=== PATIENT | male | born 1945 | race African-American/Black ===

== ENCOUNTER 2016-10-30 15:54 | Emergency (ER) | payer MEDICARE, BC ==
[~2016-10-30] VITALS: Ht 177.8 cm; Wt 73.0 kg
[~2016-10-30 15:54] MED LIST: ATOR10TA15 PO; CLON0.5T PO; COLA100C3 PO; HYDR25TA5 PO; IPRAAER INH; LABE200T2 PO; LEVE500S PO; LEXA20TA PO; NIFE90TA2 PO; POTA10LI10 PO; PRED10 PO; PULM180I INH; SENN8.6T81 PO; ZANTTAB PO
[2016-10-30 16:01] VITALS: BP 141/87; PULSE 64; RESP 16; TEMP 98.3; O2SAT 89
[2016-10-30 16:29] VITALS: BP 162/84; PULSE 59; RESP 16; O2SAT 100
[2016-10-30] MEDS ORDERED: SODIUM CHLORIDE 0.9% FLUSH 5 ML FLUSH IVF PRN (16:30)
[2016-10-30 16:37] LABS: AUTOMATED NEUTROPHIL # 5.6 TH/MM3 (1.8-7.7); BASOPHIL # 0.1 TH/MM3 (0-0.2); BASOPHIL % 2.1 % (0.0-2.0); EOSINOPHIL % 0.6 % (0.0-4.0); HEMATOCRIT 38.2 % (39.0-51.0); LYMPH % 13.8 % (9.0-44.0); MEAN CELL VOLUME 88.7 FL (80.0-100.0); MEAN CORPUSCULAR HEMOGLOBIN 28.8 PG (27.0-34.0); MEAN CORPUSCULAR HGB CONC 32.5 % (32.0-36.0); MONO % 4.6 % (0.0-8.0); NEUT % 78.9 % (16.0-70.0); PLATELET COUNT 223 TH/MM3 (150-450); RED BLOOD COUNT 4.31 MIL/MM3 (4.50-5.90); RED CELL DISTRIBUTION WIDTH 14.3 % (11.6-17.2)
[2016-10-30 16:38] LABS: HEMO FLAGS DIFF FINAL
--- NOTE | 2016-10-30 16:43 | PD ---
HPI Chief Complaint: Headache Time Seen by Provider: 16:13 Travel History International Travel<30 days: No Contact w/Intl Traveler<30days: No Traveled to known affect area: No History of Present Illness HPI Patient is a 71-year-old male with history of intracranial hemorrhage, AAA, CVA, seizure, hypertension, hyperlipidemia, COPD, chronic hypoxic respiratory failure who presents to emergency room with his family for evaluation of headache. The patient's reports that patient woke up this afternoon and complaints of a headache. Reports that the headache is located to the left side of his face around his eye. Patient is unable to describe how his headache feels. Family concerned as patient has had history of a intracranial hemorrhage in the past. Reports that with his history of CVA, reports that patient has problems describing how he usually feels and patient cannot verbalize his symptoms. 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 Patient was seen by Dr. Rodriguez with neurosurgeon at that time. PCP: Dr. Silva Leon Messenger Office: Dr. Raymundo Mckinney [facility] Past Medical History Asthma: No Anxiety: No Depression: Yes Heart Rhythm Problems: No Cancer: Yes (STOMACH-RADIATION TXMENT) Cardiovascular Problems: Yes High Cholesterol: Yes Chemotherapy: Yes Chest Pain: No Congestive Heart Failure: No COPD: Yes Cerebrovascular Accident: Yes Diabetes: No Diminished Hearing: No Endocrine: No Gastrointestinal Disorders: Yes (HX OF STOMACH CANCER ) GERD: No Genitourinary: No Headaches: No Hiatal Hernia: No Hypertension: Yes Immune Disorder: No Implanted Vascular Access Dvce: No Kidney Stones: No Musculoskeletal: No Neurologic: Yes Psychiatric: Yes Reproductive: No Respiratory: Yes Migraines: No Radiation Therapy: Yes Renal Failure: No Seizures: Yes Sleep Apnea: Yes Thyroid Disease: No Ulcer: No Tetanus Vaccination: Unknown Past Surgical History Abdominal Surgery: Yes (ABDOMINAL ANEURYSM REPAIR) Cardiac Surgery: Yes (PT HAS AORTIC ANEURYSM 4-5CM, surgery done unable to recall type) Ear Surgery: No Endocrine Surgery: No Eye Surgery: No Genitourinary Surgery: No Gynecologic Surgery: No Joint Replacement: Yes (RT SHOULDER(ROTATOR CUFF) SURGERY) Neurologic Surgery: Yes (Craniotomy ) Oral Surgery: Yes (Teeth removal) Thoracic Surgery: No Other Surgery: Yes (DEVIATED SEPTUM REPAIR) Social History Alcohol Use: No Tobacco Use: No (40 YR HX 1PPD QUIT 08/07) Substance Use: No Allergies-Medications (Allergen,Severity, Reaction): Coded Allergies: Aspirin (Verified Allergy, Severe, VOMITING, 10/30/16) Reported Meds & Prescriptions Reported Meds & Active Scripts Active Reported Sennosides 8.6 Mg Tab 8.6 Mg PO BID Zantac 150 Maximum Strength (Ranitidine HCl) 150 Mg Tab 150 Mg PO BID Prednisone 10 Mg Tab 15 Mg PO DAILY Potassium Chloride Liq (Potassium Chloride) 40 Meq/15 Ml Soln 40 Meq PO BID Keppra Liq (Levetiracetam) 500 Mg/5 Ml Soln 500 Mg PO BID Labetalol (Labetalol HCl) 200 Mg Tab 200 Mg PO BID Hydrochlorothiazide 25 Mg Tab 25 Mg PO DAILY Lexapro (Escitalopram Oxalate) 20 Mg Tab 20 Mg PO HS Colace (Docusate Sodium) 100 Mg Cap 100 Mg PO BID Clonazepam 0.5 Mg Tab 0.25 Mg PO HS Pulmicort Flexhaler (Budesonide Powder Inh) 180 Mcg/Act Inhp 180 Mcg INH Q12HR Atorvastatin (Atorvastatin Calcium) 10 Mg Tab 10 Mg PO HS Combivent Respimat Inh (Ipratropium-Albuterol Inh) 20-100 Usp/Act Aero 1 Puff INH QID Review of Systems General / Constitutional: No: Fever Eyes: No: Visual changes HENT: Positive: Headaches Cardiovascular: No: Chest Pain or Discomfort Respiratory: No: Shortness of Breath Gastrointestinal: No: Abdominal Pain Genitourinary: No: Dysuria Musculoskeletal: No: Pain Skin: No Rash Neurologic: No: Weakness Psychiatric: No: Depression Endocrine: No: Polydipsia Hematologic/Lymphatic: No: Easy Bruising Physical Exam Narrative GENERAL: NAD, nontoxic SKIN: Warm and dry. HEAD: Atraumatic. Normocephalic. EYES: Pupils equal and round. No scleral icterus. No injection or drainage. ENT: No nasal bleeding or discharge. Mucous membranes pink and moist. NECK: Trachea midline. No JVD. CARDIOVASCULAR: Regular rate and rhythm. No murmur appreciated. RESPIRATORY: No accessory muscle use. Clear to auscultation. Breath sounds equal bilaterally. GASTROINTESTINAL: Abdomen soft, non-tender, nondistended. Hepatic and splenic margins not palpable. MUSCULOSKELETAL: No obvious deformities. No clubbing. No cyanosis. No edema. NEUROLOGICAL: Awake and alert. No obvious cranial nerve deficits. Motor grossly within normal limits. PSYCHIATRIC: Appropriate mood and affect; insight and judgment normal. Data Data Last Documented VS Vital Signs Date Time Temp Pulse Resp B/P Pulse Ox O2 Delivery O2 Flow Rate FiO2 10/30/16 17:49 62 16 118/69 100 Nasal Cannula 3 10/30/16 16:01 98.3 Orders Complete Blood Count With Diff (10/30/16 16:23) Comprehensive Metabolic Panel (10/30/16 16:23) Prothrombin Time / Inr (Pt) (10/30/16 16:23) Act Partial Throm Time (Ptt) (10/30/16 16:23) Ct Brain W/O Iv Contrast(Rout) (10/30/16 16:23) Ecg Monitoring (10/30/16 16:23) Iv Access Insert/Monitor (10/30/16 16:23) Oximetry (10/30/16 16:23) Oxygen Administration (10/30/16 16:23) Blood Glucose (10/30/16 16:23) Sodium Chloride 0.9% Flush (Ns Flush) (10/30/16 16:30) Dexamethasone Inj (Decadron Inj) (10/30/16 17:15) Acetaminophen (Tylenol) (10/30/16 17:15) Diphenhydramine Inj (Benadryl Inj) (10/30/16 17:30) Metoclopramide Inj (Reglan Inj) (10/30/16 17:30) Labs Laboratory Tests Test 10/30/16 16:30 White Blood Count 7.0 TH/MM3 Red Blood Count 4.31 MIL/MM3 Hemoglobin 12.4 GM/DL Hematocrit 38.2 % Mean Corpuscular Volume 88.7 FL Mean Corpuscular Hemoglobin 28.8 PG Mean Corpuscular Hemoglobin 32.5 % Concent Red Cell Distribution Width 14.3 % Platelet Count 223 TH/MM3 Mean Platelet Volume 8.9 FL Neutrophils (%) (Auto) 78.9 % Lymphocytes (%) (Auto) 13.8 % Monocytes (%) (Auto) 4.6 % Eosinophils (%) (Auto) 0.6 % Basophils (%) (Auto) 2.1 % Neutrophils # (Auto) 5.6 TH/MM3 Lymphocytes # (Auto) 1.0 TH/MM3 Monocytes # (Auto) 0.3 TH/MM3 Eosinophils # (Auto) 0.0 TH/MM3 Basophils # (Auto) 0.1 TH/MM3 CBC Comment DIFF FINAL Differential Comment Prothrombin Time 10.0 SEC Prothromb Time International 0.9 RATIO Ratio Activated Partial 22.6 SEC Thromboplast Time Sodium Level 141 MEQ/L Potassium Level 4.3 MEQ/L Chloride Level 101 MEQ/L Carbon Dioxide Level 34.4 MEQ/L Anion Gap 6 MEQ/L Blood Urea Nitrogen 23 MG/DL Creatinine 1.10 MG/DL Estimat Glomerular Filtration 80 ML/MIN Rate Random Glucose 154 MG/DL Calcium Level 9.3 MG/DL Total Bilirubin 0.2 MG/DL Aspartate Amino Transf 21 U/L (AST/SGOT) Alanine Aminotransferase 34 U/L (ALT/SGPT) Alkaline Phosphatase 106 U/L Total Protein 7.2 GM/DL Albumin 3.2 GM/DL MDM Medical Decision Making Medical Screen Exam Complete: Yes Emergency Medical Condition: Yes Interpretation(s) Vital Signs Date Time Temp Pulse Resp B/P Pulse Ox O2 Delivery O2 Flow Rate FiO2 10/30/16 16:29 59 16 162/84 100 Nasal Cannula 2 10/30/16 16:17 16 98 Nasal Cannula 3 10/30/16 16:01 98.3 64 16 141/87 89 Differential Diagnosis Intracranial hemorrhage, CVA, cephalgia, complicated migraine Narrative Course Patient is a 71-year-old male who presents to emergency room with complaints of headache. As per family, headache began after patient woke up from a nap this afternoon. Patient reports headache is located to the left side of his face behind his eye, patient unable to describe this pain. Family was at bedside reports that they are concerned that his headache started earlier today and patient has problems with describing his feelings. Reports concern for possible ICH as pt has had ICH in august of 2015. Patient is unable to tell me if this headache feels similar to his previous symptoms when he had intracranial hemorrhage in the past. Patient was placed on quality assurance monitor chassis, patient currently on home oxygen at 3 L nasal cannula at all times, 3 L nasal cannula placed on patient. CT of the head ordered for evaluation of possible intracranial hemorrhage. CBC, BMP, coags ordered for further evaluation of symptoms. CBC WBC 7.0 Hemoglobin 12.4 Hematocrit 38.2 Platelets 223 BMP Sodium 141 Chloride 101 Potassium 4.3 Carbon dioxide 34.4 BUN 23 Creatinine 1.10 Glucose 154 PT 10 PTT 22.6 INR 0.[address] 10/30/16 1623 Signed Impressions: Service Date/Time: Sunday, October 30, 2016 16:53 - CONCLUSION: Diffuse atrophy with ex vacuo dilatation of the ventricular system. Encephalomalacia involving the left parieto-occipital regions . No evidence of acute hemorrhage or reaccumulation of the hemorrhage seen previously. Raymundo Millan MD Patient with complete resolutions of symptoms at this time. Patient reports no headache, patient requests to be discharged to home. I did review all labs and all studies with patient and his family in detail. I reviewed signs and symptoms of when to return to the emergency room. Patient will return to emergency room if symptoms return or if he develops any symptoms discussed with him today. Diagnosis Primary Impression: Cephalgia Qualified Code: R51 - Acute nonintractable headache, unspecified headache type Patient Instructions: General Instructions Additional Instructions: Please follow-up with your primary care doctor in 1-2 days Please return to ER as needed Please return to emergency room if symptoms progress or worsen or return Disposition: 01 DISCHARGE HOME Condition: Stable Hetal Stock DO Oct 30, 2016 16:42 Hetal Stock DO Oct 30, 2016 16:42
[2016-10-30 16:44] VITALS: RESP 16; O2SAT 100
[2016-10-30 16:46] LABS: CHLORIDE 101 MEQ/L (98-107); POTASSIUM 4.3 MEQ/L (3.5-5.1); SODIUM (NA) 141 MEQ/L (136-145)
[2016-10-30 16:50] LABS: ANION GAP 6 MEQ/L (5-15); APTT (PATIENT) 22.6 SEC (24.3-30.1); BICARBONATE 34.4 MEQ/L (21.0-32.0); BLOOD UREA NITROGEN 23 MG/DL (7-18); INTERNATIONAL NORMALIZED RATIO 0.9 RATIO
[2016-10-30 16:53] LABS: ALT (GPT) 34 U/L (12-78); AST (GOT) 21 U/L (15-37); GLOMERULAR FILTRATION RATE 80 ML/MIN (>89)
[2016-10-30 16:55] LABS: TOTAL BILIRUBIN ADULT 0.2 MG/DL (0.2-1.0)
[2016-10-30 16:56] LABS: ALKALINE PHOSPHATASE 106 U/L (45-117)
--- NOTE | 2016-10-30 17:10 | RADHPO ---
EXAM DATE/TIME: 10/30/2016 16:53 [facility] COMPARISON: CT BRAIN W/O CONTRAST, December 26, 2015, 21:50. INDICATIONS : Left side cephalgia. RADIATION DOSE: 64.25 CTDIvol (mGy) MEDICAL HISTORY : Non-responsive. SURGICAL HISTORY : Non-responsive. ENCOUNTER: Initial ACUITY: 1 day PAIN SCALE: Non-responsive LOCATION: cranial TECHNIQUE: Multiple contiguous axial images were obtained of the head. Using automated exposure control and adj ustment of the mA and/or kV according to patient size, radiation dose was kept as low as reasonably a chievable to obtain optimal diagnostic quality images. FINDINGS: CEREBRUM: The ventricles are normal for age except for a saccular dilatation in the left. Stable areas of encep halomalacia in the left occipitoparietal region. No evidence of midline shift, mass lesion, hemorrhag e or acute infarction. No extra-axial fluid collections are seen. POSTERIOR FOSSA: The cerebellum and brainstem are intact. The 4th ventricle is midline. The cerebellopontine angle i s unremarkable. EXTRACRANIAL: The visualized portion of the orbits is intact. SKULL: The calvaria is intact. No evidence of skull fracture. Previous left high parietal craniotomy CONCLUSION: Diffuse atrophy with ex vacuo dilatation of the ventricular system. Encephalomalacia involving the le ft parieto-occipital regions . No evidence of acute hemorrhage or reaccumulation of the hemorrhage s een previously. Raymundo Millan MD on October 30, 2016 at 17:07 Board Certified Radiologist. This report was verified electronically.
[2016-10-30] MEDS ORDERED: DEXAMETHASONE SOD PHOS 20 MG/5 ML VIAL IV PUSH ONE (17:15)
[2016-10-30] MEDS ORDERED: ACETAMINOPHEN 325 MG TAB PO ONE (17:15)
[2016-10-30] MEDS ORDERED: METOCLOPRAMIDE HCL 10 MG/2 ML VIAL IVP ONE (17:30)
[2016-10-30] MEDS ORDERED: diphenhydrAMINE HCL 50 MG/ML VIAL IVP ONE (17:30)
[2016-10-30 17:49] VITALS: BP 118/69; PULSE 62; RESP 16; O2SAT 100
[2016-10-30 18:27] VITALS: BP 115/64
[2017-03-26] MEDS ORDERED: COLA100C PO (14:45)
[2017-03-26] MEDS ORDERED: ALBU0.08 NEB (14:45)
[2017-03-26] MEDS ORDERED: HYDR-3533 PO (14:45)
== END 2016-10-30 18:55 | disposition home or self-care (01) ==
LOC: PHED 15:54
DX: R51 Headache (principal); E78.00 Pure hypercholesterolemia, unspecified; I10 Essential (primary) hypertension; R56.9 Unspecified convulsions; J44.9 Chronic obstructive pulmonary disease, unspecified; Z99.81 Dependence on supplemental oxygen; Z87.891 Personal history of nicotine dependence; Z86.73 Personal history of transient ischemic attack (TIA), and cerebral infarction without residual deficits; G47.30 Sleep apnea, unspecified
CPT/HCPCS: 70450; 80053; 85025; 85610; 85730; 96374; 96375; 99284; J1100; J1200; J2765

== ENCOUNTER 2017-01-23 20:07 | Emergency (ER) | payer MEDICARE, BC ==
[~2017-01-23] VITALS: Ht 177.8 cm; Wt 73.7 kg
[~2017-01-23 20:07] MED LIST changes: -NIFE90TA2 PO
[2017-01-23 20:29] VITALS: BP 175/96; PULSE 65; RESP 14; O2SAT 92
[2017-01-23 20:36] VITALS: BP 175/96; PULSE 60; RESP 18; TEMP 98.5; O2SAT 98
[2017-01-23] MEDS ORDERED: RESP: ALBUTEROL 2.5 MG/IPRATROPIUM 0.5 MG NEB (SCH) NEB ONE (20:45)
[2017-01-23] MEDS ORDERED: SODIUM CHLORIDE 0.9% FLUSH 10 ML FLUSH IVF PRN (20:45)
[2017-01-23 21:08] LABS: BLOOD GAS BASE EXCESS 8.3 mmol/L (-2-2); BLOOD GAS CARBOXYHEMOGLOBIN 1.3 % (0-4); BLOOD GAS HCO3 34 mmol/L (22-26); BLOOD GAS O2 HGB SATURATION 97 % (90-100); BLOOD GAS OXYGEN CONTENT 17.2 Vol % (12.0-20.0); BLOOD GAS PCO2 60 mmHG (38-42); BLOOD GAS PO2 165 mmHG (61-120); BLOOD GAS TOTAL HGB 12.4 G/DL (12.0-16.0); CRITICAL VALUE YES; OXYGEN DEVICE NASAL CANNULA; TEMP CORR TO 98.6
[2017-01-23 21:09] LABS: DRAW SITE LT RADIAL; LITER FLOW 3 L/M; NUMBER OF ARTERIAL PUNCTURES 1; STAT YES; ULNAR PULSE Y
--- NOTE | 2017-01-23 21:20 | RADHPO ---
EXAM DATE/TIME: 01/23/2017 20:51 [facility] COMPARISON: CHEST SINGLE AP, September 04, 2016, 15:57. INDICATIONS : Short of breath. MEDICAL HISTORY : Stroke. Chronic obstructive pulmonary disease. SURGICAL HISTORY : None. ENCOUNTER: Initial ACUITY: 1 day PAIN SCORE: 0/10 LOCATION: Bilateral chest FINDINGS: A single view of the chest demonstrates the lungs to be symmetrically aerated without evidence of mas s, infiltrate or effusion. The cardiomediastinal contours are unremarkable. Osseous structures are intact. CONCLUSION: No evidence of acute cardiopulmonary disease. David Garcia MD on January 23, 2017 at 21:18 Board Certified Radiologist. This report was verified electronically.
[2017-01-23 21:29] VITALS: RESP 18; O2SAT 99
[2017-01-23 21:32] LABS: AUTOMATED NEUTROPHIL # 5.6 TH/MM3 (1.8-7.7); BASOPHIL # 0.2 TH/MM3 (0-0.2); BASOPHIL % 3.3 % (0.0-2.0); EOSINOPHIL % 0.1 % (0.0-4.0); HEMATOCRIT 38.5 % (39.0-51.0); HEMO FLAGS DIFF FINAL; LYMPHOCYTE # 1.2 TH/MM3 (1.0-4.8); MEAN CELL VOLUME 89.6 FL (80.0-100.0); MEAN CORPUSCULAR HEMOGLOBIN 28.9 PG (27.0-34.0); MEAN CORPUSCULAR HGB CONC 32.2 % (32.0-36.0); NEUT % 74.6 % (16.0-70.0); PLATELET COUNT 168 TH/MM3 (150-450); RED CELL DISTRIBUTION WIDTH 14.7 % (11.6-17.2); WHITE BLOOD COUNT 7.4 TH/MM3 (4.0-11.0)
[2017-01-23 21:40] LABS: CHLORIDE 101 MEQ/L (98-107); POTASSIUM 4.6 MEQ/L (3.5-5.1); SODIUM (NA) 140 MEQ/L (136-145)
[2017-01-23 21:44] LABS: ANION GAP 4 MEQ/L (5-15); BICARBONATE 34.7 MEQ/L (21.0-32.0); BLOOD UREA NITROGEN 24 MG/DL (7-18)
[2017-01-23 21:46] LABS: APTT (PATIENT) 23.3 SEC (24.3-30.1); INTERNATIONAL NORMALIZED RATIO 0.9 RATIO; PROTHROMBIN TIME - PATIENT 10.1 SEC (9.8-11.6)
[2017-01-23 21:47] LABS: ALT (GPT) 27 U/L (12-78); AST (GOT) 19 U/L (15-37); GLOMERULAR FILTRATION RATE 72 ML/MIN (>89)
[2017-01-23 21:48] LABS: TOTAL BILIRUBIN ADULT 0.2 MG/DL (0.2-1.0)
[2017-01-23 21:50] LABS: ALKALINE PHOSPHATASE 88 U/L (45-117)
[2017-01-23 21:54] LABS: CREATINE KINASE 66 U/L (39-308)
[2017-01-23 22:30] VITALS: BP 186/105; PULSE 63; RESP 18; O2SAT 99
--- NOTE | 2017-01-23 22:41 | RADHPO ---
EXAM DATE/TIME: 01/23/2017 22:19 [facility] COMPARISON: No previous studies available for comparison. INDICATIONS : Altered mental status. RADIATION DOSE: 63.94 CTDIvol (mGy) MEDICAL HISTORY : Stroke. Seizures. Chronic obstructive pulmonary disease.Hypertension. Stomach cancer. SURGICAL HISTORY : Craniotomy. ENCOUNTER: Initial ACUITY: 1 day PAIN SCALE: 0/10 LOCATION: cranial TECHNIQUE: Multiple contiguous axial images were obtained of the head. Using automated exposure control and adj ustment of the mA and/or kV according to patient size, radiation dose was kept as low as reasonably a chievable to obtain optimal diagnostic quality images. FINDINGS: CEREBRUM: The ventricles are normal for age. No evidence of midline shift, mass lesion, hemorrhage or acute in farction. No extra-axial fluid collections are seen. Old left parietal lobe infarct again noted. POSTERIOR FOSSA: The cerebellum and brainstem are intact. The 4th ventricle is midline. The cerebellopontine angle i s unremarkable. EXTRACRANIAL: The visualized portion of the orbits is intact. SKULL: Previous left parietal craniotomy. No acute skull abnormality seen. CONCLUSION: 1. No acute intracranial abnormality demonstrated. 2. Old left parietal infarct. David Garcia MD on January 23, 2017 at 22:38 Board Certified Radiologist. This report was verified electronically.
[2017-01-23 22:47] LABS: BLOOD, URINE TRACE (NEG); GLUCOSE,URINE 100 mg/dL (NEG); KETONE, URINE NEG (NEG); NITRITE,URINE NEG (NEG); PH, URINE 5.5 (5.0-8.5)
[2017-01-23 22:51] LABS: URINE COLOR YELLOW (YELLW/STRAW)
[2017-01-23 22:52] LABS: RBC, URINE 0-3 /hpf (0-3); SQUAMOUS EPITHELIAL CELL URINE 0-5 /hpf (0-5); WBC, URINE 0-2 /hpf (0-5)
[2017-01-23 22:53] VITALS: BP 188/96; PULSE 62; RESP 18; O2SAT 2; O2SAT 98
[2017-01-23 22:53] LABS: COMMENT (UR) CATH-CULT NOT IND; CULTURE IF INDICATED CATH CULTURE NOT IND
--- NOTE | 2017-01-23 23:41 | PD ---
HPI Chief Complaint: Respiratory Symptoms Time Seen by Provider: 20:42 Travel History International Travel<30 days: No Contact w/Intl Traveler<30days: No Traveled to known affect area: No History of Present Illness HPI Patient 71-year-old male presents emergency Department with a history of bilateral hand cramping as well as some mild changes in mentation. He is coming by his daughter states he usually has a stutter. She states that earlier today he was unable to extend his fingers and had some difficulty recalling words. He had no facial droop no unilateral weakness no vision changes. She states the symptoms lasted for only a few minutes. Currently he states he feels well and has no complaints. He is due for a breathing treatment now. No fevers no cough no congestion no abdominal pain no shortness of breath. Patient does have a history of a hemorrhagic stroke in the past. PFSH Past Medical History Asthma: No Anxiety: No Depression: Yes Heart Rhythm Problems: No Cancer: Yes (STOMACH-RADIATION TXMENT) Cardiovascular Problems: Yes High Cholesterol: Yes Chemotherapy: Yes Chest Pain: No Congestive Heart Failure: No COPD: Yes Cerebrovascular Accident: Yes (Hemorrhagic stroke 08/2015) Diabetes: No Diminished Hearing: No Endocrine: No Gastrointestinal Disorders: Yes (HX OF STOMACH CANCER ) GERD: No Genitourinary: No Headaches: No Hiatal Hernia: No Hypertension: Yes Immune Disorder: No Implanted Vascular Access Dvce: No Kidney Stones: No Musculoskeletal: No Neurologic: Yes Psychiatric: Yes Reproductive: No Respiratory: Yes Migraines: No Radiation Therapy: Yes Renal Failure: No Seizures: Yes Sleep Apnea: Yes Thyroid Disease: No Ulcer: No Past Surgical History Abdominal Surgery: Yes (ABDOMINAL ANEURYSM REPAIR) Cardiac Surgery: Yes (PT HAS AORTIC ANEURYSM 4-5CM, surgery done unable to recall type) Ear Surgery: No Endocrine Surgery: No Eye Surgery: No Genitourinary Surgery: No Gynecologic Surgery: No Joint Replacement: Yes (RT SHOULDER(ROTATOR CUFF) SURGERY) Neurologic Surgery: Yes (Craniotomy ) Oral Surgery: Yes (Teeth removal) Thoracic Surgery: No Other Surgery: Yes (DEVIATED SEPTUM REPAIR) Social History Alcohol Use: No Tobacco Use: No (40 YR HX 1PPD QUIT 08/07) Substance Use: No Allergies-Medications (Allergen,Severity, Reaction): Coded Allergies: Aspirin (Verified Allergy, Severe, VOMITING, 01/23/17) Reported Meds & Prescriptions Reported Meds & Active Scripts Active Reported Sennosides 8.6 Mg Tab 8.6 Mg PO BID Zantac 150 Maximum Strength (Ranitidine HCl) 150 Mg Tab 150 Mg PO BID Prednisone 10 Mg Tab 15 Mg PO DAILY Potassium Chloride Liq (Potassium Chloride) 40 Meq/15 Ml Soln 40 Meq PO BID Keppra Liq (Levetiracetam) 500 Mg/5 Ml Soln 500 Mg PO BID Labetalol (Labetalol HCl) 200 Mg Tab 200 Mg PO BID Hydrochlorothiazide 25 Mg Tab 25 Mg PO DAILY Lexapro (Escitalopram Oxalate) 20 Mg Tab 20 Mg PO HS Colace (Docusate Sodium) 100 Mg Cap 100 Mg PO BID Clonazepam 0.5 Mg Tab 0.25 Mg PO HS Pulmicort Flexhaler (Budesonide Powder Inh) 180 Mcg/Act Inhp 180 Mcg INH Q12HR Atorvastatin (Atorvastatin Calcium) 10 Mg Tab 10 Mg PO HS Combivent Respimat Inh (Ipratropium-Albuterol Inh) 20-100 Fpc/Act Aero 1 Puff INH QID Review of Systems Except as stated in HPI: all other systems reviewed are Neg Physical Exam Narrative GENERAL: Well-developed well-nourished no apparent distress SKIN: Focused skin assessment warm/dry. HEAD: Atraumatic. Normocephalic. EYES: Pupils equal and round. No scleral icterus. No injection or drainage. ENT: No nasal bleeding or discharge. Mucous membranes pink and moist. NECK: Trachea midline. No JVD. CARDIOVASCULAR: Regular rate and rhythm. No murmur appreciated. RESPIRATORY: No accessory muscle use. Clear to auscultation. Breath sounds equal bilaterally. Minimally decreased breath sounds. No increased work of breathing. GASTROINTESTINAL: Abdomen soft, non-tender, nondistended. Hepatic and splenic margins not palpable. MUSCULOSKELETAL: No obvious deformities. No clubbing. No cyanosis. No edema. NEUROLOGICAL: Awake and alert. Cranial nerves II through XII are grossly intact and nonfocal, 5 out of 5 strength in all 4 extremity's. Cerebellar testing negative. PSYCHIATRIC: Appropriate mood and affect; insight and judgment normal. Data Data Last Documented VS Vital Signs Date Time Temp Pulse Resp B/P Pulse Ox O2 Delivery O2 Flow Rate FiO2 01/23/17 22:58 62 18 96 Nasal Cannula 2 01/23/17 22:53 188/96 01/23/17 20:36 98.5 Orders Electrocardiogram (01/23/17 20:42) Complete Blood Count With Diff (01/23/17 20:42) Comprehensive Metabolic Panel (01/23/17 20:42) Creatine Kinase (Cpk) (01/23/17 20:42) Prothrombin Time / Inr (Pt) (01/23/17 20:42) Act Partial Throm Time (Ptt) (01/23/17 20:42) Troponin I (01/23/17 20:42) Urinalysis - C+S If Indicated (01/23/17 20:42) Chest, Single Ap (01/23/17 20:42) Ct Brain W/O Iv Contrast(Rout) (01/23/17 20:42) Blood Glucose (01/23/17 20:42) Ecg Monitoring (01/23/17 20:42) Iv Access Insert/Monitor (01/23/17 20:42) Oximetry (01/23/17 20:42) Sodium Chloride 0.9% Flush (Ns Flush) (01/23/17 20:45) Arterial Blood Gas (Abg) (01/23/17 ) Albuterol-Ipratropium Neb (Duoneb Neb) (01/23/17 20:45) Labs Laboratory Tests Test 01/23/17 01/23/17 01/23/17 21:00 21:25 22:40 Blood Gas Puncture Site LT RADIAL Blood Gas Patient Temperature 98.6 Blood Gas HCO3 34 mmol/L Blood Gas Base Excess 8.3 mmol/L Blood Gas Oxygen Saturation 97 % Arterial Blood pH 7.37 Arterial Blood Partial 60 mmHG Pressure CO2 Arterial Blood Partial 165 mmHG Pressure O2 Arterial Blood Oxygen Content 17.2 Vol % Arterial Blood 1.3 % Carboxyhemoglobin Arterial Blood Methemoglobin 1.0 % Blood Gas Hemoglobin 12.4 G/DL Oxygen Delivery Device NASAL CANNULA Blood Gas Liter Flow 3 L/M White Blood Count 7.4 TH/MM3 Red Blood Count 4.30 MIL/MM3 Hemoglobin 12.4 GM/DL Hematocrit 38.5 % Mean Corpuscular Volume 89.6 FL Mean Corpuscular Hemoglobin 28.9 PG Mean Corpuscular Hemoglobin 32.2 % Concent Red Cell Distribution Width 14.7 % Platelet Count 168 TH/MM3 Mean Platelet Volume 8.2 FL Neutrophils (%) (Auto) 74.6 % Lymphocytes (%) (Auto) 16.0 % Monocytes (%) (Auto) 6.0 % Eosinophils (%) (Auto) 0.1 % Basophils (%) (Auto) 3.3 % Neutrophils # (Auto) 5.6 TH/MM3 Lymphocytes # (Auto) 1.2 TH/MM3 Monocytes # (Auto) 0.4 TH/MM3 Eosinophils # (Auto) 0.0 TH/MM3 Basophils # (Auto) 0.2 TH/MM3 CBC Comment DIFF FINAL Differential Comment Prothrombin Time 10.1 SEC Prothromb Time International 0.9 RATIO Ratio Activated Partial 23.3 SEC Thromboplast Time Sodium Level 140 MEQ/L Potassium Level 4.6 MEQ/L Chloride Level 101 MEQ/L Carbon Dioxide Level 34.7 MEQ/L Anion Gap 4 MEQ/L Blood Urea Nitrogen 24 MG/DL Creatinine 1.20 MG/DL Estimat Glomerular Filtration 72 ML/MIN Rate Random Glucose 145 MG/DL Calcium Level 9.2 MG/DL Total Bilirubin 0.2 MG/DL Aspartate Amino Transf 19 U/L (AST/SGOT) Alanine Aminotransferase 27 U/L (ALT/SGPT) Alkaline Phosphatase 88 U/L Total Creatine Kinase 66 U/L Troponin I LESS THAN 0.02 NG/ML Total Protein 6.8 GM/DL Albumin 3.3 GM/DL Urine Color YELLOW Urine Turbidity CLEAR Urine pH 5.5 Urine Specific [place] 1.022 Urine Protein TRACE mg/dL Urine Glucose (UA) 100 mg/dL Urine Ketones NEG mg/dL Urine Occult Blood TRACE Urine Nitrite NEG Urine Bilirubin NEG Urine Leukocyte Esterase NEG Urine RBC 0-3 /hpf Urine WBC 0-2 /hpf Urine Squamous Epithelial 0-5 /hpf Cells Microscopic Urinalysis Comment CATH-CULT NOT IND MDM Medical Decision Making Medical Screen Exam Complete: Yes Emergency Medical Condition: Yes Differential Diagnosis Hypercapnia, COPD exacerbation, altered mental status, TIA is a possibility though unlikely, hemorrhagic stroke is possible though unlikely. Narrative Course Patient was roomed in emergency department, initial workup was notable for chronic respiratory acidosis with a PCO2 of 60. Review of his labs at [place] show that his respiratory acidosis is been slowly worsening over the long-term. He does have some decreased breath sounds was given a breathing treatment. Was observed for several hours in the emergency department and appears well. CT scan shows Last [address] 01/23/[id number] Signed Impressions: Service Date/Time: Monday, January 23, 2017 22:19 - CONCLUSION: 1. No acute intracranial abnormality demonstrated. 2. Old left parietal infarct. David Garcia MD Chest X-Ray [id number]/23/172041 Signed Impressions: Service Date/Time: Monday, January 23, 2017 20:51 - CONCLUSION: No evidence of acute cardiopulmonary disease. David Garcia MD Discussed with the patient and his daughter the differential diagnosis including hypercapnic encephalopathy TIA. The patient however appears well now and is at baseline mental status. Discussed the need for consideration of MRIs and ultrasound carotids in the future and they would like to follow-up with her primary care physician do this. I think to get in within the next week to. I' m comfortable with this at this time. I discussed with them and they're welcome to return to the emergency department anytime should they wish for observation status to get these tests done. Diagnosis Primary Impression: Shortness of breath Additional Impression: Altered mental status Qualified Code: R41.82 - Altered mental status, unspecified altered mental status type Referrals: Silva Leon MD Disposition: 01 DISCHARGE HOME Condition: Stable Sergio Villatoro MD Jan 23, 2017 23:41
--- NOTE | 2017-01-24 14:05 | EKG ---
Date Performed: 01/23/2017 Time Performed: 20:50:52 PTAGE: 71 years EKG: Sinus bradycardia with PAC(s) Inferior/lateral T wave changes are nonspecific Borderline EC G Compared to prior tracing no significant change PREVIOUS TRACING : 09/04/2016 15.32 DOCTOR: Mauricio Miguel Interpretating Date/Time 01/24/2017 14:00:45
[2017-03-26] MEDS ORDERED: COLA100C PO (14:45)
[2017-03-26] MEDS ORDERED: ALBU0.08 NEB (14:45)
[2017-03-26] MEDS ORDERED: HYDR-3533 PO (14:45)
== END 2017-01-24 00:11 | disposition home or self-care (01) ==
LOC: PHED 20:07
DX: R06.02 Shortness of breath (principal); R41.82 Altered mental status, unspecified; R94.31 Abnormal electrocardiogram [ECG] [EKG]; I10 Essential (primary) hypertension; E78.00 Pure hypercholesterolemia, unspecified; Z86.59 Personal history of other mental and behavioral disorders; Z85.028 Personal history of other malignant neoplasm of stomach; Z86.79 Personal history of other diseases of the circulatory system; Z87.09 Personal history of other diseases of the respiratory system; Z86.69 Personal history of other diseases of the nervous system and sense organs; Z87.891 Personal history of nicotine dependence
CPT/HCPCS: 36600; 70450; 71010; 80053; 81001; 82550; 82805; 84484; 85025; 85610; 85730; 93005; 94664

== ENCOUNTER 2017-06-25 17:17 | Emergency (ER) | payer MEDICARE, BC ==
[~2017-06-25] VITALS: Ht 175.3 cm; Wt 71.8 kg
[~2017-06-25 17:17] MED LIST changes: +ALBU0.08 NEB; +COLA100C PO; -COLA100C3 PO; +ERYTOIN10 RIGHT EYE; +HYDR-3533 PO
[2017-06-25 17:20] VITALS: BP 133/81; PULSE 78; RESP 16; TEMP 98.7; O2SAT 90
--- NOTE | 2017-06-25 17:59 | PD ---
HPI Chief Complaint: General Weakness Time Seen by Provider: 17:33 Travel History International Travel<30 days: No Contact w/Intl Traveler<30days: No Traveled to known affect area: No History of Present Illness HPI 71-year-old male complains of shortness of breath, abdominal pain and generalized malaise and weakness. Patient started having intermittent coughing congestion 3 weeks ago. Patient states the cough is intermittent and nonproductive. Patient denies any fever chills. Patient has intermittent diaphoresis. Patient has history of COPD on home O2 3 L nasal cannula. Patient also has history of gastric cancer, not a candidate surgical candidate, status post palliated radiation and chemotherapy. 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 Patient also has history of recurrent left lower quadrant abdominal pain that was seen by personal physician in the past. Patient had CT scan of the abdomen and pelvis and CT of the chest done in the past. Patient's daughter states the patient has increasing weakness and decrease in appetite recently. Patient also had increasing confusion and sleeping more recently. Patient status post mass removal from the right upper eyelid recently for cancer. PFSH Past Medical History Asthma: No Anxiety: No Depression: Yes Heart Rhythm Problems: No Cancer: Yes (STOMACH-RADIATION TXMENT) Cardiovascular Problems: Yes High Cholesterol: Yes Chemotherapy: Yes Chest Pain: No Congestive Heart Failure: No COPD: Yes Cerebrovascular Accident: Yes (Hemorrhagic stroke 08/2015) Diabetes: No Diminished Hearing: No Endocrine: No Gastrointestinal Disorders: Yes (HX OF STOMACH CANCER ) GERD: No Genitourinary: No Headaches: No Hiatal Hernia: No Hypertension: Yes Immune Disorder: No Implanted Vascular Access Dvce: No Kidney Stones: No Musculoskeletal: No Neurologic: Yes Psychiatric: Yes Reproductive: No Respiratory: Yes Migraines: No Radiation Therapy: Yes Renal Failure: No Seizures: Yes Sleep Apnea: Yes Thyroid Disease: No Ulcer: No Past Surgical History Abdominal Surgery: Yes (ABDOMINAL ANEURYSM REPAIR) Cardiac Surgery: Yes (PT HAS AORTIC ANEURYSM 4-5CM, surgery done unable to recall type) Ear Surgery: No Endocrine Surgery: No Eye Surgery: No Genitourinary Surgery: No Gynecologic Surgery: No Joint Replacement: Yes (RT SHOULDER(ROTATOR CUFF) SURGERY) Neurologic Surgery: Yes (Craniotomy ) Oral Surgery: Yes (Teeth removal) Thoracic Surgery: No Other Surgery: Yes (DEVIATED SEPTUM REPAIR) Social History Alcohol Use: No Tobacco Use: No (38 YR HX 1PPD QUIT 08/07) Substance Use: No Allergies-Medications (Allergen,Severity, Reaction): Coded Allergies: aspirin (Unverified Allergy, Severe, VOMITING, 06/25/17) Reported Meds & Prescriptions Reported Meds & Active Scripts Active Reported Colace (Docusate Sodium) 100 Mg Capsule 1 Cap PO BID Lortab (Hydrocodone-Acetaminophen) 5-325 Mg Tab 1 Tab PO BID PRN Albuterol Neb (Albuterol Sulfate) 2.5 Mg/3 Ml Neb 2.5 Mg NEB ONCE PRN Sennosides 8.6 Mg Tab 8.6 Mg PO BID Zantac 150 Maximum Strength (Ranitidine HCl) 150 Mg Tab 150 Mg PO BID Prednisone 10 Mg Tab 15 Mg PO DAILY Potassium Chloride Liq (Potassium Chloride) 40 Meq/15 Ml Soln 40 Meq PO BID Keppra Liq (Levetiracetam) 500 Mg/5 Ml Soln 500 Mg PO BID Labetalol (Labetalol HCl) 200 Mg Tab 200 Mg PO BID Hydrochlorothiazide 25 Mg Tab 25 Mg PO DAILY Lexapro (Escitalopram Oxalate) 20 Mg Tab 30 Mg PO HS Clonazepam 0.5 Mg Tab 0.5 Mg PO HS Pulmicort Flexhaler (Budesonide Powder Inh) 180 Mcg/Act Inhp 180 Mcg INH Q12HR Atorvastatin (Atorvastatin Calcium) 10 Mg Tab 10 Mg PO HS Combivent Respimat Inh (Ipratropium-Albuterol Inh) 20-100 Fci/Act Aero 1 Puff INH QID Review of Systems General / Constitutional: No: Fever Eyes: No: Visual changes HENT: No: Headaches Cardiovascular: No: Chest Pain or Discomfort Respiratory: Positive: Shortness of Breath Gastrointestinal: Positive: Abdominal Pain Genitourinary: No: Dysuria Musculoskeletal: No: Pain Skin: No Rash Neurologic: No: Weakness Psychiatric: No: Depression Endocrine: No: Polydipsia Hematologic/Lymphatic: No: Easy Bruising Physical Exam Narrative GENERAL: Well-nourished, well-developed patient. SKIN: Focused skin assessment warm/dry. HEAD: Normocephalic. EYES: No scleral icterus. No injection or drainage. NECK: Supple, trachea midline. No JVD or lymphadenopathy. CARDIOVASCULAR: Regular rate and rhythm without murmurs, gallops, or rubs. RESPIRATORY: Breath sounds equal bilaterally. No accessory muscle use. Patient has moderate expiratory wheezes bilaterally. GASTROINTESTINAL: Abdomen soft, non-tender, nondistended. MUSCULOSKELETAL: No cyanosis, or edema. BACK: Nontender without obvious deformity. No CVA tenderness. Neurologic exam: Patient's lethargic and aphasic. Patient open eyes on command. Patient moves all extremities well except some mild weakness in the right hand. No other focal neurological deficit. Data Data Last Documented VS Vital Signs Date Time Temp Pulse Resp B/P (MAP) Pulse Ox O2 Delivery O2 Flow Rate FiO2 06/25/17 20:35 98.0 76 20 183/106 (131) 99 Nasal Cannula 3.00 Orders Orders Electrocardiogram (06/25/17 17:47) Complete Blood Count With Diff (06/25/17 17:47) Comprehensive Metabolic Panel (06/25/17 17:47) Creatine Kinase (Cpk) (06/25/17 17:47) Troponin I (06/25/17 17:47) B-Type Natriuretic Peptide (06/25/17 17:47) Prothrombin Time / Inr (Pt) (06/25/17 17:47) Act Partial Throm Time (Ptt) (06/25/17 17:47) Blood Culture (06/25/17 17:47) Lipase (06/25/17 17:47) Urinalysis - C+S If Indicated (06/25/17 17:47) Thyroid Stimulating Hormone (06/25/17 17:47) Chest, Single Ap (06/25/17 17:47) Ct Abd/Pel W Iv Contrast(Rout) (06/25/17 17:47) Iv Access Insert/Monitor (06/25/17 17:47) Ecg Monitoring (06/25/17 17:47) Oxygen Administration (06/25/17 17:47) Oximetry (06/25/17 17:47) Albuterol-Ipratropium Neb (Duoneb Neb) (06/25/17 18:00) Methylprednisolone So Succ Inj (Solumedr (06/25/17 18:00) Sodium Chlor 0.9% 1000 Ml Inj (Ns 1000 M (06/25/17 18:00) Lactic Acid (06/25/17 17:57) Iohexol 350 Inj (Omnipaque 350 Inj) (06/25/17 18:59) Cath For Specimen (06/25/17 20:42) Labs Laboratory Tests Test 06/25/17 18:00 06/25/17 18:05 06/25/17 21:00 White Blood Count 7.1 TH/MM3 Red Blood Count 4.31 MIL/MM3 Hemoglobin 12.3 GM/DL Hematocrit 38.3 % Mean Corpuscular Volume 89.0 FL Mean Corpuscular Hemoglobin 28.5 PG Mean Corpuscular Hemoglobin Concent 32.1 % Red Cell Distribution Width 13.7 % Platelet Count 202 TH/MM3 Mean Platelet Volume 8.5 FL Neutrophils (%) (Auto) 80.8 % Lymphocytes (%) (Auto) 11.5 % Monocytes (%) (Auto) 4.7 % Eosinophils (%) (Auto) 0.3 % Basophils (%) (Auto) 2.7 % Neutrophils # (Auto) 5.8 TH/MM3 Lymphocytes # (Auto) 0.8 TH/MM3 Monocytes # (Auto) 0.3 TH/MM3 Eosinophils # (Auto) 0.0 TH/MM3 Basophils # (Auto) 0.2 TH/MM3 CBC Comment DIFF FINAL Differential Comment Prothrombin Time 10.1 SEC Prothromb Time International Ratio 0.9 RATIO Activated Partial Thromboplast Time 24.4 SEC Blood Urea Nitrogen 19 MG/DL Creatinine 1.20 MG/DL Random Glucose 233 MG/DL Total Protein 7.3 GM/DL Albumin 3.1 GM/DL Calcium Level 9.5 MG/DL Alkaline Phosphatase 111 U/L Aspartate Amino Transf (AST/SGOT) 18 U/L Alanine Aminotransferase (ALT/SGPT) 26 U/L Total Bilirubin 0.2 MG/DL Sodium Level 138 MEQ/L Potassium Level 4.3 MEQ/L Chloride Level 99 MEQ/L Carbon Dioxide Level 33.6 MEQ/L Anion Gap 5 MEQ/L Estimat Glomerular Filtration Rate 72 ML/MIN Total Creatine Kinase 34 U/L Troponin I LESS THAN 0.02 NG/ML B-Type Natriuretic Peptide 149 PG/ML Lipase 50 U/L Thyroid Stimulating Hormone 3rd Gen 0.476 uIU/ML Lactic Acid Level 1.8 mmol/L Urine Color YELLOW Urine Turbidity SLIGHT Urine pH 6.5 Urine Specific [place] GREATER THAN 1.035 Urine Protein NEG mg/dL Urine Glucose (UA) NEG mg/dL Urine Ketones NEG mg/dL Urine Occult Blood SMALL Urine Nitrite NEG Urine Bilirubin NEG Urine Leukocyte Esterase NEG Urine RBC 0-3 /hpf Urine WBC 0-2 /hpf Urine Squamous Epithelial Cells 0-5 /hpf Microscopic Urinalysis Comment CULT NOT INDICATED MDM Medical Decision Making Medical Screen Exam Complete: Yes Emergency Medical Condition: Yes Medical Record Reviewed: Yes Interpretation(s) Last Impressions Chest X-Ray [id number]/[id number] Signed Impressions: Service Date/Time: Sunday, June 25, 2017 19:08 - CONCLUSION: No evidence of acute cardiopulmonary disease. David Garcia MD Abdomen/Pelvis CT [id number]/[id number] Signed Impressions: Service Date/Time: Sunday, June 25, 2017 18:54 - CONCLUSION: No acute abnormality demonstrated. David Garcia MD 20 11 PM. CBC within normal limit. WBC 7.1. 80 neutrophil. White count 33.6. BUN 19. Glucose 233. Peptic acid 1.8. Cardiac enzymes are normal. BNP 149. 21:24 PM. UA is negative. Differential Diagnosis Differential diagnosis including acute exacerbation COPD, bronchitis, pneumonia , dehydration, electrolyte imbalance, sepsis, TIA CVA. Narrative Course 71-year-old male complains of generalized malaise and weakness, increasing confusion and sleepiness, coughing congestion, left upper quadrant abdominal pain. History of COPD, gastric cancer. Albuterol with Atrovent unit dose treatment 3. Solu-Medrol 125 mg IV. Normal saline solution 100 cc an hour. Zithromax 500 mg by mouth given. Diagnosis Primary Impression: Bronchitis Additional Impressions: Viral syndrome Abdominal pain Qualified Codes: R10.12 - Left upper quadrant pain Patient Instructions: General Instructions Additional Instructions: Z-Andrew as directed. Follow-up with personal physician. Return if persistent problem or worse. Encouraged by mouth fluids. Med/Other Pt SpecificInfo: Prescription(s) given Scripts Azithromycin (Zithromax Z-Andrew) 250 Mg Dspk 250 MG PO DIRECTED for Infection, #1 DSPK 0 Refills 500 MG (2 tabs) day 1, then 1 tab days 2-5. Prov: Raheem Cruz MD 06/25/17 Disposition: 01 DISCHARGE HOME Condition: Stable Raheem Cruz MD Jun 25, 2017 17:59
[2017-06-25] MEDS ORDERED: RESP: ALBUTEROL 2.5 MG/IPRATROPIUM 0.5 MG NEB (SCH) INH (18:00)
[2017-06-25] MEDS ORDERED: SODIUM CHLOR 0.9% 1000 ML INJ 1,000 ML IV SCH (18:00)
[2017-06-25] MEDS ORDERED: methylPREDNISolone SOD SUCC 125 MG/2 ML VIAL IV PUSH ONE (18:00)
[2017-06-25 18:21] LABS: AUTOMATED NEUTROPHIL # 5.8 TH/MM3 (1.8-7.7); BASOPHIL # 0.2 TH/MM3 (0-0.2); BASOPHIL % 2.7 % (0.0-2.0); EOSINOPHIL % 0.3 % (0.0-4.0); HEMATOCRIT 38.3 % (39.0-51.0); HEMO FLAGS DIFF FINAL; LYMPH % 11.5 % (9.0-44.0); LYMPHOCYTE # 0.8 TH/MM3 (1.0-4.8); MEAN CORPUSCULAR HEMOGLOBIN 28.5 PG (27.0-34.0); MEAN CORPUSCULAR HGB CONC 32.1 % (32.0-36.0); MONO % 4.7 % (0.0-8.0); NEUT % 80.8 % (16.0-70.0); PLATELET COUNT 202 TH/MM3 (150-450); RED BLOOD COUNT 4.31 MIL/MM3 (4.50-5.90); RED CELL DISTRIBUTION WIDTH 13.7 % (11.6-17.2); WHITE BLOOD COUNT 7.1 TH/MM3 (4.0-11.0)
[2017-06-25 18:31] VITALS: BP 148/92; PULSE 73; RESP 20; O2SAT 98
[2017-06-25 18:34] LABS: CHLORIDE 99 MEQ/L (98-107); POTASSIUM 4.3 MEQ/L (3.5-5.1); SODIUM (NA) 138 MEQ/L (136-145)
[2017-06-25 18:38] LABS: ANION GAP 5 MEQ/L (5-15); BICARBONATE 33.6 MEQ/L (21.0-32.0); BLOOD UREA NITROGEN 19 MG/DL (7-18)
[2017-06-25 18:39] LABS: APTT (PATIENT) 24.4 SEC (24.3-30.1); INTERNATIONAL NORMALIZED RATIO 0.9 RATIO; PROTHROMBIN TIME - PATIENT 10.1 SEC (9.8-11.6)
[2017-06-25 18:41] LABS: ALT (GPT) 26 U/L (12-78); AST (GOT) 18 U/L (15-37); GLOMERULAR FILTRATION RATE 72 ML/MIN (>89)
[2017-06-25 18:43] LABS: TOTAL BILIRUBIN ADULT 0.2 MG/DL (0.2-1.0)
[2017-06-25 18:44] LABS: ALKALINE PHOSPHATASE 111 U/L (45-117)
[2017-06-25] MEDS ORDERED: IOHEXOL 350 MG/ML 10 ML VIAL (for RAD DIAG) IVCONTRAST ONE (18:59)
[2017-06-25 19:01] LABS: CREATINE KINASE 34 U/L (39-308)
--- NOTE | 2017-06-25 19:13 | RADRPT ---
EXAM DATE/TIME: 06/25/2017 18:54 [facility] COMPARISON: No previous studies available for comparison. INDICATIONS : Increased weakness, short of breath and left upper quadrant pain. IV CONTRAST: 95 cc Omnipaque 350 (iohexol) IV ORAL CONTRAST: No oral contrast ingested. RADIATION DOSE: 7.16 CTDIvol (mGy) MEDICAL HISTORY : Cerebrovascular disease. Aneurysm, abdominal. Cardiovascular diseaseHypertension. COPD. Stomach cance r. SURGICAL HISTORY : Craniotomy. Abdominal aortic aneurysm repair.Coronary artery stent.Orthopedic surgery. ENCOUNTER: Initial ACUITY: 1 day PAIN SCALE: 6/10 LOCATION: Left upper quadrant TECHNIQUE: Volumetric scanning of the abdomen and pelvis was performed. Using automated exposure control and ad justment of the mA and/or kV according to patient size, radiation dose was kept as low as reasonably achievable to obtain optimal diagnostic quality images. DICOM format image data is available electro nically for review and comparison. FINDINGS: There is mild fatty infiltrated. Spleen, pancreas, adrenal glands and kidneys are all within normal l imits. No obstruction or acute inflammatory changes are seen of the gastrointestinal tract. Previous aortic aneurysm repair appears intact. Visualized lung bases are clear. No acute bony abnormality demonstrated. CONCLUSION: No acute abnormality demonstrated. David Garcia MD on June 25, 2017 at 19:10 Board Certified Radiologist. This report was verified electronically.
[2017-06-25 19:15] VITALS: BP 177/93; PULSE 74; RESP 22; TEMP 98.2; O2SAT 100
--- NOTE | 2017-06-25 19:23 | RADRPT ---
EXAM DATE/TIME: 06/25/2017 19:08 [facility] COMPARISON: CHEST SINGLE AP, January 23, 2017, 20:51. INDICATIONS : Short of breath. MEDICAL HISTORY : Stroke. Seizures. Chronic obstructive pulmonary disease. Hypertension. Stomach cancer. SURGICAL HISTORY : Craniotomy. ENCOUNTER: Initial ACUITY: 2 days PAIN SCORE: 0/10 LOCATION: Bilateral chest FINDINGS: A single view of the chest demonstrates the lungs to be symmetrically aerated without evidence of mas s, infiltrate or effusion. The cardiomediastinal contours are unremarkable. Osseous structures are intact. CONCLUSION: No evidence of acute cardiopulmonary disease. David Garcia MD on June 25, 2017 at 19:21 Board Certified Radiologist. This report was verified electronically.
[2017-06-25 20:35] VITALS: BP 183/106; PULSE 76; RESP 20; TEMP 98; O2SAT 99
[2017-06-25 21:09] LABS: BLOOD, URINE SMALL (NEG); GLUCOSE,URINE NEG (NEG); KETONE, URINE NEG (NEG); NITRITE,URINE NEG (NEG); PH, URINE 6.5 (5.0-8.5)
[2017-06-25 21:20] LABS: URINE COLOR YELLOW (YELLW/STRAW)
[2017-06-25 21:21] LABS: COMMENT (UR) CULT NOT INDICATED; CULTURE IF INDICATED CULT NOT INDICATED; RBC, URINE 0-3 /hpf (0-3); SQUAMOUS EPITHELIAL CELL URINE 0-5 /hpf (0-5); WBC, URINE 0-2 /hpf (0-5)
[2017-06-25] MEDS ORDERED: ZITHTAB PO (21:26)
[2017-06-25] MEDS ORDERED: AZITHROMYCIN 250 MG TAB PO ONE (21:30)
[2017-06-25 21:49] VITALS: BP 183/114
--- NOTE | 2017-06-26 15:10 | EKG ---
Date Performed: 06/25/2017 Time Performed: 17:56:59 PTAGE: 71 years EKG: Sinus rhythm ST DEVIATION AND MODERATE T-WAVE ABNORMALITY ABNORMAL ECG PREVIOUS TRACING : 01/23/2017 20.50 Compared to the previous tracing rate faster DOCTOR: Sandra Wilkins Interpretating Date/Time 06/26/2017 15:09:12
== END 2017-06-25 21:52 | disposition home or self-care (01) ==
LOC: PHED 17:17
DX: J40 Bronchitis, not specified as acute or chronic (principal); B34.9 Viral infection, unspecified; R10.12 Left upper quadrant pain; R05 Cough; R41.0 Disorientation, unspecified; R94.31 Abnormal electrocardiogram [ECG] [EKG]; I10 Essential (primary) hypertension; E78.5 Hyperlipidemia, unspecified; Z99.81 Dependence on supplemental oxygen; Z85.028 Personal history of other malignant neoplasm of stomach; Z86.79 Personal history of other diseases of the circulatory system; Z87.39 Personal history of other diseases of the musculoskeletal system and connective tissue; Z86.59 Personal history of other mental and behavioral disorders; Z87.09 Personal history of other diseases of the respiratory system; Z86.69 Personal history of other diseases of the nervous system and sense organs
CPT/HCPCS: 71010; 74177; 80053; 81001; 82550; 83605; 83690; 83880; 84443; 84484; 85025; 85610; 85730; 87040; 93005; 94640; 94664; 96361; 96374; 99285; J2930; J7030; P9612; Q9967

== ENCOUNTER 2017-06-28 09:26 | Inpatient (IN) | payer MEDICARE, BC ==
[2017-06-28] VITALS (9 sets, daily range): BP systolic 116–187; BP diastolic 70–102; PULSE 64–109; RESP 16–20; TEMP 98.1–103.1; O2SAT 92–99
[~2017-06-28] VITALS: Ht 177.8 cm; Wt 75.8 kg
[~2017-06-28 09:26] MED LIST changes: -ERYTOIN10 RIGHT EYE; +ZITHTAB PO
[2017-06-28] MEDS ORDERED: SODIUM CHLOR 0.9% 1000 ML INJ 1,000 ML IV ONE ×2 (09:37)
[2017-06-28] MEDS ORDERED: SODIUM CHLOR 0.9% 1000 ML INJ 100 ML IV ONE (09:37)
[2017-06-28] MEDS ORDERED: ACETAMINOPHEN 325 MG TAB PO ONE (09:45)
--- NOTE | 2017-06-28 09:55 | PD ---
HPI Chief Complaint: Respiratory Symptoms Time Seen by Provider: 09:29 Travel History International Travel<30 days: No Contact w/Intl Traveler<30days: No Traveled to known affect area: No History of Present Illness HPI The patient is a 71-year-old Cris male who presents emergency department via EMS for shortness of breath. The patient is a somewhat limited historian, the daughter does provide the majority of the history. The patient was recently seen in the emergency department for bronchitis and cough, underwent CT the abdomen and pelvis and had a chest x-ray report with laboratory evaluation. The patient was discharged home with Zithromax and albuterol. According to the daughter the patient was doing well until this morning when he developed increasing shortness of breath. She states the patient has increasing shortness of breath when he gets up out of his chair and ambulates to the bathroom. The patient does have a history of COPD and is on oxygen via nasal cannula daily@2-3 L. The patient's primary physician is Dr. Leon. The daughter is unsure if the patient is had any fever at home, does note his cough has improved, however, shortness of breath has progressed. She states the patient does have a remote history of gastric cancer and underwent chemotherapy and radiation therapy, is currently in remission. However, she does note the patient has had a decreased appetite recently. Symptoms are moderate, there are no current alleviating or exacerbating factors. PFSH Past Medical History Asthma: No Anxiety: No Depression: Yes Heart Rhythm Problems: No Cancer: Yes (STOMACH-RADIATION TXMENT, r eyelid cancer [id number]) Cardiovascular Problems: Yes High Cholesterol: Yes Chemotherapy: Yes Chest Pain: No Congestive Heart Failure: No COPD: Yes Cerebrovascular Accident: Yes (Hemorrhagic stroke 08/2015, r sided weakness) Diabetes: No Diminished Hearing: No Endocrine: No Gastrointestinal Disorders: Yes (HX OF STOMACH CANCER ) GERD: No Genitourinary: No Headaches: No Hiatal Hernia: No Hypertension: Yes Immune Disorder: No Implanted Vascular Access Dvce: No Kidney Stones: No Musculoskeletal: No Neurologic: Yes Psychiatric: Yes Reproductive: No Respiratory: Yes Migraines: No Radiation Therapy: Yes Renal Failure: No Seizures: Yes Sleep Apnea: Yes Thyroid Disease: No Ulcer: No Tetanus Vaccination: < 5 Years Past Surgical History Abdominal Surgery: Yes (ABDOMINAL ANEURYSM REPAIR) Cardiac Surgery: Yes (PT HAS AORTIC ANEURYSM 4-5CM, surgery done unable to recall type) Ear Surgery: No Endocrine Surgery: No Eye Surgery: No Genitourinary Surgery: No Gynecologic Surgery: No Joint Replacement: Yes (RT SHOULDER(ROTATOR CUFF) SURGERY) Neurologic Surgery: Yes (Craniotomy ) Oral Surgery: Yes (Teeth removal) Thoracic Surgery: No Other Surgery: Yes (DEVIATED SEPTUM REPAIR) Social History Alcohol Use: No Tobacco Use: No (40 YR HX 1PPD QUIT 08/07) Substance Use: No Allergies-Medications (Allergen,Severity, Reaction): Coded Allergies: aspirin (Unverified Allergy, Severe, VOMITING, 06/28/17) Reported Meds & Prescriptions Reported Meds & Active Scripts Active Zithromax Z-Andrew (Azithromycin) 250 Mg Dspk 250 Mg PO DIRECTED 500 MG (2 tabs) day 1, then 1 tab days 2-5. Reported Colace (Docusate Sodium) 100 Mg Capsule 1 Cap PO BID Lortab (Hydrocodone-Acetaminophen) 5-325 Mg Tab 1 Tab PO BID PRN Albuterol Neb (Albuterol Sulfate) 2.5 Mg/3 Ml Neb 2.5 Mg NEB ONCE PRN Sennosides 8.6 Mg Tab 8.6 Mg PO BID Zantac 150 Maximum Strength (Ranitidine HCl) 150 Mg Tab 150 Mg PO BID Prednisone 10 Mg Tab 15 Mg PO DAILY Potassium Chloride Liq (Potassium Chloride) 40 Meq/15 Ml Soln 40 Meq PO BID Keppra Liq (Levetiracetam) 500 Mg/5 Ml Soln 500 Mg PO BID Labetalol (Labetalol HCl) 200 Mg Tab 200 Mg PO BID Hydrochlorothiazide 25 Mg Tab 25 Mg PO DAILY Lexapro (Escitalopram Oxalate) 20 Mg Tab 30 Mg PO HS Clonazepam 0.5 Mg Tab 0.5 Mg PO HS Atorvastatin (Atorvastatin Calcium) 10 Mg Tab 10 Mg PO HS Combivent Respimat Inh (Ipratropium-Albuterol Inh) 20-100 Fdc/Act Aero 1 Puff INH QID Review of Systems Except as stated in HPI: all other systems reviewed are Neg General / Constitutional: Positive: Fever (fever 103.1 upon arrival to the emergency department) Cardiovascular: Positive: Chest Pain or Discomfort, Dyspnea on exertion Respiratory: Positive: Cough, Shortness of Breath Gastrointestinal: Positive: Loss of Appetite, No: Nausea, Vomiting, Diarrhea, Abdominal Pain Genitourinary: No: Dysuria Musculoskeletal: Positive: Weakness Neurologic: Positive: Weakness Physical Exam Narrative GENERAL: Eyes closed, responds to verbal commands, somewhat lethargic 71-year- old male on O2 via nasal cannula. SKIN: Focused skin assessment warm/dry. HEAD: Atraumatic. Normocephalic. EYES: Cataracts noted bilaterally. ENT: No nasal bleeding or discharge. Dry mucous membranes. NECK: Trachea midline. No JVD. Old tracheostomy scar noted. CARDIOVASCULAR: Regular, tachycardic with a heart rate of 105. RESPIRATORY: Mild tachypnea with a respiratory rate of 22. Diminished breath sounds in the bases with rhonchi in the right base. GASTROINTESTINAL: Abdomen soft, non-tender, nondistended. Old PEG tube scar noted. MUSCULOSKELETAL: No obvious deformities. No clubbing. No cyanosis. No edema. Back: No CVA tenderness. NEUROLOGICAL: Eyes closed, does respond to verbal commands. Follows simple commands. PSYCHIATRIC: Appropriate mood and affect; insight and judgment normal. Data Data Last Documented VS Vital Signs Date Time Temp Pulse Resp B/P (MAP) Pulse Ox O2 Delivery O2 Flow Rate FiO2 06/28/17 10:56 100.9 101 20 142/82 (102) 93 Nasal Cannula 2.00 Orders Orders Electrocardiogram (06/28/17 09:37) Complete Blood Count With Diff (06/28/17 09:37) Comprehensive Metabolic Panel (06/28/17 09:37) Lactic Acid Sepsis Protocol (06/28/17 09:37) Magnesium (Mg) (06/28/17 09:37) Ckmb (Isoenzyme) Profile (06/28/17 09:37) Troponin I (06/28/17 09:37) Urinalysis - C+S If Indicated (06/28/17 09:37) Influenzae A/B Antigen (06/28/17 09:37) Blood Culture (06/28/17 09:37) Chest, Single Ap (06/28/17 09:37) Blood Glucose (06/28/17 09:37) Ecg Monitoring (06/28/17 09:37) Iv Access Insert/Monitor (06/28/17 09:37) Oximetry (06/28/17 09:37) Oxygen Administration (06/28/17 09:37) Acetaminophen (Tylenol) (06/28/17 09:45) Sodium Chlor 0.9% 1000 Ml Inj (Ns 1000 M (06/28/17 09:37) Sodium Chlor 0.9% 1000 Ml Inj (Ns 1000 M (06/28/17 09:37) Sodium Chlor 0.9% 1000 Ml Inj (Ns 1000 M (06/28/17 09:37) Cath For Specimen (06/28/17 09:58) Ceftriaxone Inj (Rocephin Inj) (06/28/17 10:30) Urine Culture (06/28/17 10:05) Admit Order (Ed Use Only) (06/28/17 11:13) Labs Laboratory Tests Test 06/28/17 09:54 06/28/17 10:05 White Blood Count 9.8 TH/MM3 Red Blood Count 4.22 MIL/MM3 Hemoglobin 12.0 GM/DL Hematocrit 38.1 % Mean Corpuscular Volume 90.2 FL Mean Corpuscular Hemoglobin 28.5 PG Mean Corpuscular Hemoglobin Concent 31.6 % Red Cell Distribution Width 13.9 % Platelet Count 168 TH/MM3 Mean Platelet Volume 8.4 FL Neutrophils (%) (Auto) 83.7 % Lymphocytes (%) (Auto) 9.0 % Monocytes (%) (Auto) 6.5 % Eosinophils (%) (Auto) 0.2 % Basophils (%) (Auto) 0.6 % Neutrophils # (Auto) 8.2 TH/MM3 Lymphocytes # (Auto) 0.9 TH/MM3 Monocytes # (Auto) 0.6 TH/MM3 Eosinophils # (Auto) 0.0 TH/MM3 Basophils # (Auto) 0.1 TH/MM3 CBC Comment DIFF FINAL Differential Comment Blood Urea Nitrogen 24 MG/DL Creatinine 1.40 MG/DL Random Glucose 163 MG/DL Total Protein 7.0 GM/DL Albumin 3.2 GM/DL Calcium Level 9.4 MG/DL Magnesium Level 1.9 MG/DL Alkaline Phosphatase 115 U/L Aspartate Amino Transf (AST/SGOT) 22 U/L Alanine Aminotransferase (ALT/SGPT) 28 U/L Total Bilirubin 0.7 MG/DL Sodium Level 139 MEQ/L Potassium Level 3.6 MEQ/L Chloride Level 97 MEQ/L Carbon Dioxide Level 35.0 MEQ/L Anion Gap 7 MEQ/L Estimat Glomerular Filtration Rate 60 ML/MIN Lactic Acid Level 2.0 mmol/L Total Creatine Kinase 53 U/L Troponin I 0.03 NG/ML Urine Collection Type CLEAN CATCH Urine Color YELLOW Urine Turbidity SLIGHT Urine pH 5.5 Urine Specific Plush 1.022 Urine Protein TRACE mg/dL Urine Glucose (UA) NEG mg/dL Urine Ketones NEG mg/dL Urine Occult Blood LARGE Urine Nitrite POS Urine Bilirubin NEG Urine Leukocyte Esterase TRACE Urine RBC 100-200 /hpf Urine WBC 20-24 /hpf Urine Squamous Epithelial Cells 0-5 /hpf Urine Bacteria MANY /hpf Microscopic Urinalysis Comment CULTURE INDICATED Urine Collection Time 10:05 [facility] Medical Decision Making Medical Screen Exam Complete: Yes Emergency Medical Condition: Yes Medical Record Reviewed: Yes Interpretation(s) EKG reveals sinus tachycardia with a rate of 103. Short NC interval of 96 ms. nonspecific T wave changes. Chest x-ray reveals stable minimal bibasilar parenchymal changes from June 25, 2017 Date/Time Source Procedure Growth Status 06/28/17 10:02 Blood Peripheral Aerobic Blood Culture Pending Received 06/28/17 10:02 Blood Peripheral Anaerobic Blood Culture Pending Received 06/28/17 09:54 Blood Peripheral Aerobic Blood Culture Pending Received 06/28/17 09:54 Blood Peripheral Anaerobic Blood Culture Pending Received 06/28/17 09:58 Nasal Aspirate Influenza Types A,B Antigen (LAZARO) - Final NEGATIVE FOR FLU A AND B ANTIGEN.... Complete 06/28/17 10:05 Urine Clean Catch Urine Culture Pending Received Laboratory Tests Test 06/28/17 09:54 06/28/17 10:05 White Blood Count 9.8 TH/MM3 Red Blood Count 4.22 MIL/MM3 Hemoglobin 12.0 GM/DL Hematocrit 38.1 % Mean Corpuscular Volume 90.2 FL Mean Corpuscular Hemoglobin 28.5 PG Mean Corpuscular Hemoglobin Concent 31.6 % Red Cell Distribution Width 13.9 % Platelet Count 168 TH/MM3 Mean Platelet Volume 8.4 FL Neutrophils (%) (Auto) 83.7 % Lymphocytes (%) (Auto) 9.0 % Monocytes (%) (Auto) 6.5 % Eosinophils (%) (Auto) 0.2 % Basophils (%) (Auto) 0.6 % Neutrophils # (Auto) 8.2 TH/MM3 Lymphocytes # (Auto) 0.9 TH/MM3 Monocytes # (Auto) 0.6 TH/MM3 Eosinophils # (Auto) 0.0 TH/MM3 Basophils # (Auto) 0.1 TH/MM3 CBC Comment DIFF FINAL Differential Comment Blood Urea Nitrogen 24 MG/DL Creatinine 1.40 MG/DL Random Glucose 163 MG/DL Total Protein 7.0 GM/DL Albumin 3.2 GM/DL Calcium Level 9.4 MG/DL Magnesium Level 1.9 MG/DL Alkaline Phosphatase 115 U/L Aspartate Amino Transf (AST/SGOT) 22 U/L Alanine Aminotransferase (ALT/SGPT) 28 U/L Total Bilirubin 0.7 MG/DL Sodium Level 139 MEQ/L Potassium Level 3.6 MEQ/L Chloride Level 97 MEQ/L Carbon Dioxide Level 35.0 MEQ/L Anion Gap 7 MEQ/L Estimat Glomerular Filtration Rate 60 ML/MIN Lactic Acid Level 2.0 mmol/L Total Creatine Kinase 53 U/L Troponin I 0.03 NG/ML Urine Collection Type CLEAN CATCH Urine Color YELLOW Urine Turbidity SLIGHT Urine pH 5.5 Urine Specific Plush 1.022 Urine Protein TRACE mg/dL Urine Glucose (UA) NEG mg/dL Urine Ketones NEG mg/dL Urine Occult Blood LARGE Urine Nitrite POS Urine Bilirubin NEG Urine Leukocyte Esterase TRACE Urine RBC 100-200 /hpf Urine WBC 20-24 /hpf Urine Squamous Epithelial Cells 0-5 /hpf Urine Bacteria MANY /hpf Microscopic Urinalysis Comment CULTURE INDICATED Urine Collection Time 10:05 Differential Diagnosis Differential diagnosis includes pneumonia, sepsis, UTI, bacteremia, septicemia, COPD exacerbation, bronchitis, congestive heart failure. Narrative Course IV was established, labs are drawn and sent, and the patient was placed on cardiac telemetry monitoring and continuous pulse oximetry monitoring. EKG was ordered and interpreted. Blood cultures and lactic gas were sent to lab. Repeat chest x-ray was performed. I reviewed the patient's chest x-ray and CT the abdomen and pelvis from June 25, both were unremarkable for any acute findings. Chest x-ray reveals stable bibasilar changes, no acute findings. White count is normal, lactic acid was 2.0, creatinine is mildly elevated at 1.4 , patient's baseline on last labs appears to be 1.2. UA is positive for WBCs and RBCs, possibly urosepsis. The patient does have a white count 103.1 with a heart rate of 110 consistent with sepsis criteria with underlying UTI. The patient was administered one gram of Rocephin intravenously. Blood cultures are pending. The patient will be admitted. Sepsis Criteria SIRS Criteria (2 or more): Temp > 100.9 or < 96.8, Heart rate over 90, RR > 20 or PaCO2 < [address] Phys[address] Dr. Leon was paged at 10:29 AM for admission. I discussed the patient with Dr. Leon at 11:10 AM who agrees with admission. Diagnosis Primary Impression: UTI (urinary tract infection) Qualified Codes: N30.01 - Acute cystitis with hematuria Additional Impressions: Sepsis Qualified Codes: A41.9 - Sepsis, unspecified organism Dyspnea Qualified Codes: R06.09 - Other forms of dyspnea Condition: Stable Yunior Shearer MD Jun 28, 2017 09:55
[2017-06-28 10:07] LABS: AUTOMATED NEUTROPHIL # 8.2 TH/MM3 (1.8-7.7); BASOPHIL # 0.1 TH/MM3 (0-0.2); BASOPHIL % 0.6 % (0.0-2.0); EOSINOPHIL % 0.2 % (0.0-4.0); HEMATOCRIT 38.1 % (39.0-51.0); LYMPHOCYTE # 0.9 TH/MM3 (1.0-4.8); MEAN CELL VOLUME 90.2 FL (80.0-100.0); MEAN CORPUSCULAR HEMOGLOBIN 28.5 PG (27.0-34.0); MEAN CORPUSCULAR HGB CONC 31.6 % (32.0-36.0); MONO % 6.5 % (0.0-8.0); NEUT % 83.7 % (16.0-70.0); PLATELET COUNT 168 TH/MM3 (150-450); RED BLOOD COUNT 4.22 MIL/MM3 (4.50-5.90); RED CELL DISTRIBUTION WIDTH 13.9 % (11.6-17.2); WHITE BLOOD COUNT 9.8 TH/MM3 (4.0-11.0)
[2017-06-28 10:08] LABS: HEMO FLAGS DIFF FINAL
[2017-06-28 10:14] LABS: CHLORIDE 97 MEQ/L (98-107); POTASSIUM 3.6 MEQ/L (3.5-5.1); SODIUM (NA) 139 MEQ/L (136-145)
[2017-06-28 10:17] LABS: ANION GAP 7 MEQ/L (5-15); BLOOD UREA NITROGEN 24 MG/DL (7-18); MAGNESIUM 1.9 MG/DL (1.5-2.5)
[2017-06-28 10:19] LABS: BLOOD, URINE LARGE (NEG); GLUCOSE,URINE NEG (NEG); KETONE, URINE NEG (NEG); NITRITE,URINE POS (NEG); PH, URINE 5.5 (5.0-8.5)
--- NOTE | 2017-06-28 10:19 | RADRPT ---
EXAM DATE/TIME: 06/28/2017 09:49 [place] COMPARISON: CHEST SINGLE AP, June 25, 2017, 19:08. INDICATIONS : Fever MEDICAL HISTORY : Stroke. Hypertension COPD, Asthma, Sleep apnea, Stomach carcinoma SURGICAL HISTORY : Coronary artery stent. Craniotomy, Aortic aneurysm ENCOUNTER: Initial ACUITY: 1 day PAIN SCORE: 2/10 LOCATION: Bilateral chest FINDINGS: Minimal bibasilar parenchymal changes evident. Heart and pulmonary vascularity are normal. Portion of bony skeleton visualized unremarkable. CONCLUSION: Stable minimal bibasilar parenchymal changes from 06/25/17. Adonis Jackson MD FACR on June 28, 2017 at 10:02 Board Certified Radiologist. This report was verified electronically.
[2017-06-28 10:20] LABS: ALT (GPT) 28 U/L (12-78); AST (GOT) 22 U/L (15-37)
[2017-06-28 10:21] LABS: GLOMERULAR FILTRATION RATE 60 ML/MIN (>89)
[2017-06-28 10:22] LABS: TOTAL BILIRUBIN ADULT 0.7 MG/DL (0.2-1.0)
[2017-06-28 10:23] LABS: ALKALINE PHOSPHATASE 115 U/L (45-117)
[2017-06-28 10:23] LABS: METHOD OF COLLECTION CLEAN CATCH; URINE COLOR YELLOW (YELLW/STRAW)
[2017-06-28 10:24] LABS: CREATINE KINASE 53 U/L (39-308)
[2017-06-28 10:24] LABS: BACTERIA, URINE MANY /hpf; RBC, URINE 100-200 /hpf (0-3); SQUAMOUS EPITHELIAL CELL URINE 0-5 /hpf (0-5)
[2017-06-28 10:25] LABS: COMMENT (UR) CULTURE INDICATED; CULTURE IF INDICATED CULTURE INDICATED
[2017-06-28] MEDS ORDERED: cefTRIAXone INJ 1,000 MG in SODIUM CHLORIDE 0.9% INJ 100 ML IV ONE (10:30)
[2017-06-28] MEDS ORDERED: ACETAMINOPHEN 325 MG TAB PO PRN (11:45)
[2017-06-28] MEDS ORDERED: SODIUM CHLORIDE 0.9% FLUSH 10 ML FLUSH IV FLUSH PRN (11:45)
[2017-06-28] MEDS ORDERED: NALOXONE HCL 0.4 MG/ML AMP IV PUSH PRN (11:45)
[2017-06-28] MEDS ORDERED: LACTULOSE SYRUP 20 GM/30 ML CUP PO PRN (11:45)
[2017-06-28] MEDS ORDERED: SENNOSIDES 8.6 MG TAB PO PRN (11:45)
[2017-06-28] MEDS ORDERED: MAGNESIUM HYDROXIDE SUSP 30 ML CUP PO PRN (11:45)
[2017-06-28] MEDS ORDERED: BISACODYL 10 MG SUPP RECTAL PRN (11:45)
[2017-06-28] MEDS: ENOXAPARIN SODIUM 30 MG/0.3 ML SYRINGE SQ SCH (12:24)
[2017-06-28] MEDS: ACETAMINOPHEN/HYDROcodone 325 MG/5 MG TAB PO PRN (13:19)
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
[2017-06-28] MEDS: SODIUM CHLOR 0.45% 1000 ML INJ 1,000 ML IV SCH (14:02)
[2017-06-28] MEDS: RESP: ALBUTEROL 2.5 MG/IPRATROPIUM 0.5 MG NEB (SCH) NEB ×2 (15:13→21:03)
[2017-06-28] MEDS: LABETALOL HCL 200 MG TAB PO SCH (20:53)
[2017-06-28] MEDS: clonazePAM 0.5 MG TAB PO SCH (20:53)
[2017-06-28] MEDS: levETIRAcetam 500 MG/5 ML UDC PO SCH (20:54)
[2017-06-28] MEDS: DOCUSATE SODIUM 50 MG/SENNA 8.6 MG TAB PO SCH (20:54)
[2017-06-28] MEDS: ESCITALOPRAM OXALATE 10 MG TAB PO SCH (20:54)
[2017-06-28] MEDS: SODIUM CHLORIDE 0.9% FLUSH 10 ML FLUSH IV FLUSH SCH (20:54)
[2017-06-28] MEDS: FAMOTIDINE 20 MG TAB PO SCH (20:54)
[2017-06-28] MEDS: ATORVASTATIN 10 MG TAB PO SCH (20:54)
[2017-06-28] MEDS ORDERED: DOCUSATE SODIUM 100 MG CAP PO SCH (21:00)
[2017-06-28] MEDS ORDERED: SENNOSIDES 8.6 MG TAB PO SCH (21:00)
[2017-06-28] MEDS: RESP: BUDESONIDE 0.5 MG/2 ML NEB NEB SCH (21:03)
--- NOTE | 2017-06-28 21:37 | EKG ---
Date Performed: 06/28/2017 Time Performed: 09:46:27 PTAGE: 71 years EKG: SINUS TACHYCARDIA WITH SHORT FL INTERVAL NONSPECIFIC ST & T-WAVE ABNORMALITY ABNORMAL ECG PREVIOUS TRACING : 06/25/2017 17.56 Compared to previous tracing, heart rate has increased, non specific ST abnormality is now slightly more pronounced. DOCTOR: Jony Nolan Interpretating Date/Time 06/28/2017 21:37:08
[2017-06-29 00:32] VITALS: BP 170/91
[2017-06-29] MEDS: RESP: ALBUTEROL 2.5 MG/IPRATROPIUM 0.5 MG NEB (PRN) NEB (01:09)
[2017-06-29] MEDS: RESP: ALBUTEROL 2.5 MG/IPRATROPIUM 0.5 MG NEB (SCH) NEB ×4 (04:05→21:42)
[2017-06-29 06:33] LABS: AUTOMATED NEUTROPHIL # 10.9 TH/MM3 (1.8-7.7); EOSINOPHIL % 0.1 % (0.0-4.0); HEMATOCRIT 33.5 % (39.0-51.0); LYMPH % 8.9 % (9.0-44.0); LYMPHOCYTE # 1.2 TH/MM3 (1.0-4.8); MEAN CELL VOLUME 88.8 FL (80.0-100.0); MEAN CORPUSCULAR HGB CONC 31.5 % (32.0-36.0); PLATELET COUNT 148 TH/MM3 (150-450); RED BLOOD COUNT 3.78 MIL/MM3 (4.50-5.90); RED CELL DISTRIBUTION WIDTH 13.4 % (11.6-17.2); WHITE BLOOD COUNT 13.4 TH/MM3 (4.0-11.0)
[2017-06-29 06:35] LABS: HEMO FLAGS AUTO DIFF
[2017-06-29 06:41] LABS: CHLORIDE 101 MEQ/L (98-107); POTASSIUM 3.6 MEQ/L (3.5-5.1); SODIUM (NA) 139 MEQ/L (136-145)
[2017-06-29 07:00] LABS: ALKALINE PHOSPHATASE 103 U/L (45-117); ALT (GPT) 34 U/L (12-78); ANION GAP 4 MEQ/L (5-15); AST (GOT) 31 U/L (15-37); BICARBONATE 34.5 MEQ/L (21.0-32.0); BLOOD UREA NITROGEN 23 MG/DL (7-18); GLOMERULAR FILTRATION RATE 92 ML/MIN (>89); TOTAL BILIRUBIN ADULT 0.4 MG/DL (0.2-1.0)
--- NOTE | 2017-06-29 07:47 | HHI.PR ---
Subjective Remarks Patient in bed appears in distress with sob and wheezing. Says he had to call for neb administration. + nonproductive cough, feels congested. No fever or chills. Feels very tired. No nausea or vomiting, has decreased appetite and not eating well. Says he is following with Dr Mckinney his pulm Says he is on chronic steroid use managed by Dr Mckinney. Objective Vitals Vital Signs Date Time Temp Pulse Resp B/P (MAP) Pulse Ox O2 Delivery O2 Flow Rate FiO2 06/29/17 04:00 06/29/17 00:32 170/91 (117) 06/28/17 21:28 98.9 64 20 187/102 (130) 97 06/28/17 21:03 98 Nasal Cannula 3.00 06/28/17 15:45 98.1 85 20 158/86 (110) 97 06/28/17 15:18 96 Nasal Cannula 3.00 06/28/17 14:19 18 06/28/17 13:10 101.0 82 16 154/85 (108) 99 06/28/17 11:53 06/28/17 10:56 100.9 101 20 142/82 (102) 93 Nasal Cannula 2.00 06/28/17 10:54 92 06/28/17 09:37 105 20 95 Nasal Cannula 2.00 06/28/17 09:36 92 Nasal Cannula 2.00 06/28/17 09:36 92 06/28/17 09:29 103.1 109 20 116/70 (85) 96 I/O 06/28/17 06/28/17 06/28/17 06/29/17 06/29/17 06/29/17 07:00 15:00 23:00 07:00 15:00 23:00 Intake Total 3580 ml 637.5 ml Output Total 250 ml 450 ml Balance 3330 ml 637.5 ml -450 ml Intake Oral 480 ml 300 ml IV Total 3100 ml 337.5 ml Output Urine Total 250 ml 450 ml # Voids 1 1 2 # Bowel Movements 1 Result Diagram: 06/29/17 0606 06/29/17 0606 Imaging Last Impressions Chest X-Ray 06/28/17 0937 Signed Impressions: Service Date/Time: Wednesday, June 28, 2017 09:49 - CONCLUSION: Stable minimal bibasilar parenchymal changes from 06/25/17. Adonis Jackson MD FACR Objective Remarks GENERAL: Very pleasant 71 yo male, in bed, well nourished, well developed, appears ill, in some distress 2/2 sob and wheezing. SKIN: Warm and dry. OROPHARYNX: Mucous membranes pink and moist, mild oral thrush. HEAD: Atraumatic. Normocephalic. CARDIOVASCULAR: Regular rate and rhythm. RESPIRATORY: With sob, scattered expiratory wheezing, decreased breath sounds, nonproductive cough. No accessory muscle use. GASTROINTESTINAL: Abdomen soft, non-tender, nondistended. MUSCULOSKELETAL: Extremities without clubbing, cyanosis, or edema. No obvious deformities. NEUROLOGICAL: Awake and alert. No obvious cranial nerve deficits. Motor grossly within normal limits. Normal speech. PSYCHIATRIC: Appropriate mood and affect; insight and judgment normal. A/P Assessment and Plan Very pleasant 71 yo male with: Sepsis ( leukocytosis, tachycardia, fever, UTI): Urine cultures pending Continue Rocephin IV Received IVF, monitor for fluid overload, will hold IV\F at this time as adequate PO intake and risk of fluid overload COPD with exacerbation Acute on Chronic respiratory failure patient on continuous O2 2L NC at home. Now requiring more O2 , at 3L Patient on chronic steroid use prednisone 15 mg po daily, managed by Dr Zion Mckinney pulm. Currently with sob, wheezing and dessating, patient with COPD with acute exacerbation. Will give one dose solumedrol 125 mg IV , continue with solumedrol 40 mg Q8hrs , taper steroids as tolerated Will also change nebs to duonebs 4 hrs while awake and also Q2 hrs as need foe SOB/wheezing O2 supplement as need, keep O2 sat > 92% CXR reviewed not much change from previous, patient is on IV Rocephin ( treating for UTI as well). Will repeat CXR today Will consult his pulm Dr Mckinney Monitor VS Continue home meds H/o Aortic aneurysm had percutaneous endovascular aneurysm repair with conscious sedation July 12, [address] Elder. Hypertension not controlled at this time. Continue home meds. will stop IVF, add hydralazine 10 mg po Q6 hrs as need if SBP> 160. Monitor VS closely and adjust meds as indicated. We might consider restarting lasix H/o seizure: well controlled, continue levetiracetam. Patient has a h/o intracranial hemorrhage and has developed seizure thereafter Hyperlipidemia: continue lipitor H/o gastric cancer, however not a candidate for surgery 2/2 multiple comorbidities. Had radiation therapy. Follows with Dr Chao hem/onc DVT ppx Discussed with the patient, nurse, at bedside Discharge Planning Pending improvement Brenda Thomson MD Jun 29, 2017 07:47
[2017-06-29 07:49] LABS: SCAN/DIFF AUTO DIFF CONFIRMED
[2017-06-29 08:00] VITALS: BP 150/79; PULSE 63; RESP 20; TEMP 98; O2SAT 100
[2017-06-29] MEDS ORDERED: methylPREDNISolone SOD SUCC 125 MG/2 ML VIAL IV PUSH ONE (08:30)
[2017-06-29] MEDS: MULTIVITAMIN TAB PO SCH (09:00)
[2017-06-29] MEDS: SODIUM CHLORIDE 0.9% FLUSH 10 ML FLUSH IV FLUSH SCH ×2 (09:00→20:18)
[2017-06-29] MEDS: FAMOTIDINE 20 MG TAB PO SCH ×2 (09:35→20:16)
[2017-06-29] MEDS: levETIRAcetam 500 MG/5 ML UDC PO SCH ×2 (09:36→20:18)
[2017-06-29] MEDS: predniSONE 5 MG TAB PO SCH (09:36)
[2017-06-29] MEDS: LABETALOL HCL 200 MG TAB PO SCH ×2 (09:36→20:18)
[2017-06-29] MEDS: DOCUSATE SODIUM 50 MG/SENNA 8.6 MG TAB PO SCH ×2 (09:36→20:17)
[2017-06-29] MEDS: cefTRIAXone INJ 1,000 MG in SODIUM CHLORIDE 0.9% INJ 100 ML IV SCH (09:42)
[2017-06-29] MEDS: RESP: BUDESONIDE 0.5 MG/2 ML NEB NEB SCH ×2 (11:31→21:42)
[2017-06-29 11:35] VITALS: O2SAT 97
[2017-06-29 12:00] VITALS: BP 168/87; PULSE 72; RESP 22; TEMP 98.7; O2SAT 97
[2017-06-29] MEDS: methylPREDNISolone SOD SUCC 40 MG/1 ML VIAL IV PUSH SCH ×2 (13:13→20:19)
[2017-06-29] MEDS: ENOXAPARIN SODIUM 30 MG/0.3 ML SYRINGE SQ SCH (13:14)
[2017-06-29] MEDS: SODIUM CHLOR 0.45% 1000 ML INJ 1,000 ML IV SCH (14:15)
[2017-06-29 16:00] VITALS: BP 162/84; PULSE 90; RESP 20; TEMP 98.1; O2SAT 98
[2017-06-29] MEDS: clonazePAM 0.5 MG TAB PO SCH (20:16)
[2017-06-29] MEDS: ESCITALOPRAM OXALATE 10 MG TAB PO SCH (20:17)
[2017-06-29] MEDS: ATORVASTATIN 10 MG TAB PO SCH (20:17)
[2017-06-29] MEDS: hydrALAZINE HCL 10 MG TAB PO PRN (20:54)
[2017-06-29] MEDS: ACETAMINOPHEN/HYDROcodone 325 MG/5 MG TAB PO PRN (20:54)
[2017-06-29 21:45] VITALS: O2SAT 97
--- NOTE | 2017-06-29 22:42 | RADRPT ---
EXAM DATE/TIME: 06/29/2017 22:12 [facility] COMPARISON: CT ABDOMEN & PELVIS W CONTRAST, June 25, 2017, 18:54. CHEST SINGLE AP, January 23, 2017, 20:51. CHEST PA & LAT, December 02, 2015, 13:34. INDICATIONS : Dyspnea. MEDICAL HISTORY : Stroke. Hypertension COPD, Asthma, Sleep apnea, Stomach carcinoma SURGICAL HISTORY : Coronary artery stent. Craniotomy, Aortic aneurysm ENCOUNTER: Initial ACUITY: 1 day PAIN SCORE: 0/10 LOCATION: Bilateral chest FINDINGS: Examinations performed sitting in a chair. The lungs are mildly hyperaerated and there is upper lobe emphysema, stable from prior. No focal infiltrates seen. There is some blunting of the costophreni c angle posterior and on the left side suggesting a small pleural effusion. The heart is normal in s ize and configuration. No gross bony abnormality. Aortic stent seen in the abdomen. CONCLUSION: No infiltrates seen. Tiny left pleural effusion. Rory Olivares MD on June 29, 2017 at 22:40 Board Certified Radiologist. This report was verified electronically.
[2017-06-30] VITALS (10 sets, daily range): BP systolic 151–182; BP diastolic 80–100; PULSE 67–75; RESP 16–22; TEMP 97.2–98.9; O2SAT 95–100
[2017-06-30] MEDS: RESP: ALBUTEROL 2.5 MG/IPRATROPIUM 0.5 MG NEB (SCH) NEB ×5 (02:05→21:40)
[2017-06-30] MEDS: SODIUM CHLOR 0.45% 1000 ML INJ 1,000 ML IV SCH ×2 (02:07→16:55)
[2017-06-30] MEDS: RESP: ALBUTEROL 2.5 MG/IPRATROPIUM 0.5 MG NEB (PRN) NEB (02:13)
[2017-06-30] MEDS: methylPREDNISolone SOD SUCC 40 MG/1 ML VIAL IV PUSH SCH ×3 (06:14→21:12)
[2017-06-30 07:24] LABS: POTASSIUM 3.8 MEQ/L (3.5-5.1)
[2017-06-30 07:25] LABS: AUTOMATED NEUTROPHIL # 8.8 TH/MM3 (1.8-7.7); BASOPHIL % 0.1 % (0.0-2.0); HEMATOCRIT 34.7 % (39.0-51.0); LYMPH % 7.4 % (9.0-44.0); LYMPHOCYTE # 0.7 TH/MM3 (1.0-4.8); MEAN CELL VOLUME 88.8 FL (80.0-100.0); MEAN CORPUSCULAR HGB CONC 31.6 % (32.0-36.0); NEUT % 87.5 % (16.0-70.0); PLATELET COUNT 161 TH/MM3 (150-450); RED BLOOD COUNT 3.91 MIL/MM3 (4.50-5.90); RED CELL DISTRIBUTION WIDTH 13.5 % (11.6-17.2)
[2017-06-30 07:26] LABS: HEMO FLAGS DIFF FINAL
[2017-06-30 07:38] LABS: BICARBONATE 34.9 MEQ/L (21.0-32.0)
[2017-06-30] MEDS: RESP: BUDESONIDE 0.5 MG/2 ML NEB NEB SCH ×2 (07:44→19:57)
--- NOTE | 2017-06-30 08:01 | HHI.PR ---
Subjective Remarks In the bed, appears sleepy. Per did not sleep last night well, as he went late for CXR. He is eating better per , ate all dinner. No chest pain. Still with sob, says no much improvement. Non productive cough. no fever ro chills. No abd pain, n/v/d/c. Objective Vitals Vital Signs Date Time Temp Pulse Resp B/P (MAP) Pulse Ox O2 Delivery O2 Flow Rate FiO2 06/30/17 07:44 98 Nasal Cannula 3.00 06/30/17 04:36 98.8 75 20 163/82 (109) 97 06/30/17 02:04 98.3 74 22 182/100 (127) 97 06/30/17 01:08 98.9 71 18 151/96 (114) 100 06/29/17 21:45 97 Nasal Cannula 3.00 06/29/17 16:00 98.1 90 20 162/84 (110) 98 06/29/17 12:00 98.7 72 22 168/87 (114) 97 06/29/17 11:35 97 Nasal Cannula 3.00 I/O 06/29/17 06/29/17 06/29/17 06/30/17 06/30/17 06/30/17 07:00 15:00 23:00 07:00 15:00 23:00 Intake Total 1550 ml Output Total 450 ml 300 ml 301 ml Balance -450 ml -300 ml 1550 ml -301 ml IV Total 1550 ml Output Urine Total 450 ml 300 ml 300 ml Stool Total 1 ml # Voids 2 2 # Bowel Movements 1 1 Result Diagram: 06/30/1762906/30/17 06 Imaging Last Impressions Chest X-Ray 06/28/17 0937 Signed Impressions: Service Date/Time: Wednesday, June 28, 2017 09:49 - CONCLUSION: Stable minimal bibasilar parenchymal changes from 06/25/17. Adonis Jackson MD FACR Objective Remarks GENERAL: Very pleasant 71 yo male, in bed, well nourished, well developed, appears ill, in some distress 2/2 sob and wheezing. SKIN: Warm and dry. OROPHARYNX: Mucous membranes pink and moist, mild oral thrush. HEAD: Atraumatic. Normocephalic. CARDIOVASCULAR: Regular rate and rhythm. RESPIRATORY: With sob, scattered expiratory wheezing, decreased breath sounds, nonproductive cough. No accessory muscle use. GASTROINTESTINAL: Abdomen soft, non-tender, nondistended. MUSCULOSKELETAL: Extremities without clubbing, cyanosis, or edema. No obvious deformities. NEUROLOGICAL: Awake and alert. No obvious cranial nerve deficits. Motor grossly within normal limits. Normal speech. PSYCHIATRIC: Appropriate mood and affect; insight and judgment normal. A/P Assessment and Plan Very pleasant 71 yo male with: Sepsis ( leukocytosis, tachycardia, fever, UTI): Positive blood cultures GPC 1/4 bottles poss contaminant, however will ask ID for evaluation Urine cultures GNR Continue Rocephin IV Received IVF, monitor for fluid overload, will hold IV\F at this time as adequate PO intake and risk of fluid overload COPD with exacerbation Acute on Chronic respiratory failure patient on continuous O2 2L NC at home. Now requiring more O2 , at 3L Patient on chronic steroid use prednisone 15 mg po daily, managed by Dr Zion Mckinney pulm. Currently with sob, wheezing and dessating, patient with COPD with acute exacerbation. Will give one dose solumedrol 125 mg IV , continue with solumedrol 40 mg Q8hrs , taper steroids as tolerated Will also change nebs to duonebs 4 hrs while awake and also Q2 hrs as need foe SOB/wheezing O2 supplement as need, keep O2 sat > 92% CXR reviewed not much change from previous, patient is on IV Rocephin ( treating for UTI as well). Will repeat CXR today Will consult his pulm Dr Mckinney Monitor VS Continue home meds H/o Aortic aneurysm had percutaneous endovascular aneurysm repair with conscious sedation July 12, [address] Elder. Hypertension not controlled at this time. Continue home meds. will stop IVF, add hydralazine 10 mg po Q6 hrs as need if SBP> 160. Monitor VS closely and adjust meds as indicated. We might consider restarting lasix H/o seizure: well controlled, continue levetiracetam. Patient has a h/o intracranial hemorrhage and has developed seizure thereafter Hyperlipidemia: continue lipitor H/o gastric cancer, however not a candidate for surgery 2/2 multiple comorbidities. Had radiation therapy. Follows with Dr Chao hem/onc DVT ppx Discussed with the patient, nurse, at bedside Discharge Planning Pending improvement Brenda Thomson MD Jun 30, 2017 08:01
[2017-06-30] MEDS: MULTIVITAMIN TAB PO SCH (08:57)
[2017-06-30] MEDS: LABETALOL HCL 200 MG TAB PO SCH ×2 (08:57→21:12)
[2017-06-30] MEDS: FUROSEMIDE 40 MG TAB PO SCH (08:57)
[2017-06-30] MEDS: predniSONE 5 MG TAB PO SCH (08:57)
[2017-06-30] MEDS: DOCUSATE SODIUM 50 MG/SENNA 8.6 MG TAB PO SCH ×2 (08:58→21:11)
[2017-06-30] MEDS: SODIUM CHLORIDE 0.9% FLUSH 10 ML FLUSH IV FLUSH SCH ×2 (08:58→21:12)
[2017-06-30] MEDS: FAMOTIDINE 20 MG TAB PO SCH ×2 (08:58→21:11)
[2017-06-30] MEDS: levETIRAcetam 500 MG/5 ML UDC PO SCH ×2 (08:58→21:12)
[2017-06-30] MEDS: cefTRIAXone INJ 1,000 MG in SODIUM CHLORIDE 0.9% INJ 100 ML IV SCH (10:57)
[2017-06-30] MEDS: ENOXAPARIN SODIUM 30 MG/0.3 ML SYRINGE SQ SCH (10:58)
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
[2017-06-30] MEDS: ACETAMINOPHEN/HYDROcodone 325 MG/5 MG TAB PO PRN (15:29)
[2017-06-30] MEDS: hydrALAZINE HCL 10 MG TAB PO PRN ×2 (15:33→23:36)
[2017-06-30] MEDS: RESP: ACETYLCYSTEINE 10% 30 ML NEB NEB SCH ×2 (15:36→21:41)
--- NOTE | 2017-06-30 16:54 | RADRPT ---
EXAM DATE/TIME: 06/30/2017 16:31 [facility] COMPARISON: CT ABDOMEN & PELVIS W CONTRAST, June 25, 2017, 18:54. INDICATIONS : Urinary tract infection. MEDICAL HISTORY : Cardiovascular disease. Cerebrovascular disease. Hypertension. COPD. Aneurysm, abdominal. SURGICAL HISTORY : Craniotomy. Abdominal aortic aneurysm repair. Coronary artery stent. Orthopedic surgery. ENCOUNTER: Initial ACUITY: 1 day PAIN SCORE: 2/10 LOCATION: Bilateral flank MEASUREMENTS: RIGHT KIDNEY: 10.2 x 4.8 x 4.2 cm LEFT KIDNEY: 10.1 x 4.6 x 5.5 cm FINDINGS: RIGHT KIDNEY: Renal cortex is normal in thickness and with mildly heterogeneous echotexture, but no discrete masses .. No hydronephrosis, stone, or mass. LEFT KIDNEY: Renal cortex is normal in thickness and with mildly heterogeneous echotexture, but no discrete masses .. Prominent column of Alistair seen in the midpole. No hydronephrosis, stone, or mass. BLADDER: Within normal limits given the degree of distension. CONCLUSION: No evidence of mass or hydronephrosis. Rory Olivares MD on June 30, 2017 at 16:50 Board Certified Radiologist. This report was verified electronically.
--- NOTE | 2017-06-30 18:47 | MB ---
cc: JEN OWENS DATE OF CONSULTATION 06/30/2017 REASON FOR CONSULTATION Respiratory insufficiency and COPD. HISTORY OF THE PRESENT ILLNESS This is 71-year-old -[place] male who has a longstanding history of COPD and chronic bronchitis was admitted with complaints of generalized weakness, shortness of breath and wheezing. The patient has been on O2 at 2-3 liters nasal cannula and nebulized bronchodilators, but apparently had traveled out of state recently and became progressively more congested, dyspneic and in spite of being on an outpatient therapy for an exacerbation of his bronchitis he failed to improve and thus was advised admission. During admission the patient apparently was running a temperature of over 102 degrees. He has been started on IV antibiotic therapy which include Rocephin 1 gram daily as well as on Solu-Medrol 40 mg every 8 hours. The patient is unable to give any proper details of his history. His is here giving some information. There was no history of chest pain. No history of nausea, vomiting or aspiration. PAST MEDICAL HISTORY The patient's past history has included: 1. History of COPD. 2. Chronic bronchitis. 3. History of colon polyps. 4. Prior history of carcinoma of the stomach status post radiation therapy with resection. 5. Also has had chronic kidney disease. 6. And anemia of chronic disease. 7. History of hyperlipidemia. 8. And hypertension. 9. Depression. PAST SURGICAL HISTORY Surgery includes: 1. Coronary artery stenting. 2. Aortic aneurysm repair in June of 2015. 3. History of rotator cuff repair on the right. 4. Nasal septal repair. SOCIAL HISTORY Habits, the patient has a past history of smoking a pack per day for over 20 years. No significant alcohol. MEDICATIONS List: 1. Lexapro 20 mg 1-1/2 tablets daily. 2. Labetalol 200 mg b.i.d. 3. Klonopin 0.5 mg at bedtime. 4. Hydrocodone 5/325 one three times a day as needed. 5. Potassium chloride 20 mEq daily. 6. Lipitor 10 mg daily. 7. Prednisone 15 mg a day. 8. DuoNeb nebs q.i.d. 9. Hydrochlorothiazide 25 mg a day. 10. Zantac 150 mg b.i.d 11. Levetiracetam 500 milligrams twice a day. 12. Oxygen 3 liters. ALLERGIES ASPIRIN. FAMILY HISTORY Significant for asthma. Mother had history of breast cancer. REVIEW OF SYSTEMS The patient is unable to provide many details. He has some wheezing, cough, chest congestion. He has fevers, chills. He has abdominal and epigastric distress. He has leg swelling and has joint pains. PHYSICAL EXAMINATION GENERAL: This elderly -[place] male who is awake and in no acute distress. Mild pallor, no cyanosis. VITAL SIGNS: He is afebrile with blood pressure 126/60, pulse 95, respirations 20, temperature 97.5. HEENT: Head normocephalic. Pupils are reactive and equal. Tongue is dry. Throat is injected. Nasal mucosa is clear. NECK: Supple without bruits. No thyroid enlargement. CHEST: Distant breath sounds. There are a few coarse wheezes bilaterally with occasional left basilar crackles. CARDIOVASCULAR: Heart sounds are regular S1-S2. No murmur. No S3. ABDOMEN: Soft, protuberant without masses. No organomegaly or tenderness. Bowel sounds are active. EXTREMITIES: No edema. Reflexes are 1+ with no gross motor deficits. The patient does move his extremities well. NEUROLOGIC: Cranial nerves not tested. RECTAL: Exam is deferred. SKIN: Dry and warm. IMAGING He had a chest x-ray shows bibasilar infiltrates. IMPRESSION 1. COPD with acute exacerbation. 2. Emphysema with chronic bronchitis. 3. Bibasilar atelectasis. 4. Urinary tract infection with sepsis. 5. History of stomach cancer. 6. Hypertension. 7. History of seizures. PLAN The patient will be continued on antibiotic coverage which included Rocephin 1 gram IV daily, Solu-Medrol 40 mg every 8 hours. We will add Mucomyst solution for thick sputum 10% solution three times a day with a nebulizer. DuoNeb solution continued four times daily with a nebulizer. The patient will be sent for a follow up chest x-ray. O2 will be left at 3 liters nasal cannula to maintain sats greater than 92%. The patient will be given an incentive spirometer if he can use it every two hours. Thank you Dr. Leon for this consultation. MD LORRAINE Tran/ELSIE /3:05 PM /6:15 PM
[2017-06-30] MEDS: ATORVASTATIN 10 MG TAB PO SCH (21:10)
[2017-06-30] MEDS: clonazePAM 0.5 MG TAB PO SCH (21:10)
[2017-06-30] MEDS: ESCITALOPRAM OXALATE 10 MG TAB PO SCH (21:11)
[2017-07-01] VITALS (8 sets, daily range): BP systolic 130–192; BP diastolic 84–103; PULSE 68–87; RESP 18–22; TEMP 96.5–98.6; O2SAT 92–99
[2017-07-01] MEDS: RESP: ALBUTEROL 2.5 MG/IPRATROPIUM 0.5 MG NEB (PRN) NEB ×2 (01:26→03:20)
[2017-07-01] MEDS: RESP: ACETYLCYSTEINE 10% 30 ML NEB NEB SCH ×4 (03:20→19:20)
[2017-07-01] MEDS: hydrALAZINE HCL 10 MG TAB PO PRN ×2 (05:15→23:28)
[2017-07-01] MEDS: methylPREDNISolone SOD SUCC 40 MG/1 ML VIAL IV PUSH SCH ×3 (05:16→21:15)
[2017-07-01] MEDS: SODIUM CHLOR 0.45% 1000 ML INJ 1,000 ML IV SCH ×2 (06:15→16:51)
[2017-07-01] MEDS: RESP: BUDESONIDE 0.5 MG/2 ML NEB NEB SCH ×2 (07:23→19:20)
[2017-07-01] MEDS: RESP: ALBUTEROL 2.5 MG/IPRATROPIUM 0.5 MG NEB (SCH) NEB ×4 (07:23→19:20)
[2017-07-01] MEDS: levETIRAcetam 500 MG/5 ML UDC PO SCH ×2 (07:55→20:36)
[2017-07-01] MEDS: MULTIVITAMIN TAB PO SCH (07:56)
[2017-07-01] MEDS: FAMOTIDINE 20 MG TAB PO SCH ×2 (07:56→20:35)
[2017-07-01] MEDS: DOCUSATE SODIUM 50 MG/SENNA 8.6 MG TAB PO SCH ×2 (07:56→20:35)
[2017-07-01] MEDS: FUROSEMIDE 40 MG TAB PO SCH (07:56)
[2017-07-01] MEDS: LABETALOL HCL 200 MG TAB PO SCH ×2 (07:57→20:36)
[2017-07-01] MEDS: ACETAMINOPHEN/HYDROcodone 325 MG/5 MG TAB PO PRN (07:57)
[2017-07-01] MEDS: SODIUM CHLORIDE 0.9% FLUSH 10 ML FLUSH IV FLUSH SCH ×2 (09:00→20:40)
[2017-07-01] MEDS: cefTRIAXone INJ 1,000 MG in SODIUM CHLORIDE 0.9% INJ 100 ML IV SCH (10:58)
[2017-07-01] MEDS: ENOXAPARIN SODIUM 30 MG/0.3 ML SYRINGE SQ SCH (10:58)
--- NOTE | 2017-07-01 19:37 | EKG ---
Date Performed: 06/30/2017 Time Performed: 16:05:20 PTAGE: 71 years EKG: Sinus rhythm WITH SINUS ARRHYTHMIA WITH SHORT UT INTERVAL NONSPECIFIC T-WAVE ABNORMALITY ABNORMAL ECG PREVIOUS TRACING : 06/28/2017 09.46 Compared to prior tracing no significant change DOCTOR: Familia Jeffrey Interpretating Date/Time 07/01/2017 19:33:22
[2017-07-01] MEDS: clonazePAM 0.5 MG TAB PO SCH (20:35)
[2017-07-01] MEDS: ATORVASTATIN 10 MG TAB PO SCH (20:35)
[2017-07-01] MEDS: ESCITALOPRAM OXALATE 10 MG TAB PO SCH (20:36)
[2017-07-02] VITALS (10 sets, daily range): BP systolic 165–183; BP diastolic 80–101; PULSE 65–85; RESP 18–22; TEMP 96.7–99.8; O2SAT 95–99
[2017-07-02] MEDS: ACETAMINOPHEN/HYDROcodone 325 MG/5 MG TAB PO PRN ×2 (02:59→09:30)
[2017-07-02] MEDS: RESP: ALBUTEROL 2.5 MG/IPRATROPIUM 0.5 MG NEB (PRN) NEB (03:12)
[2017-07-02] MEDS: RESP: ACETYLCYSTEINE 10% 30 ML NEB NEB SCH ×4 (03:13→20:14)
[2017-07-02] MEDS: methylPREDNISolone SOD SUCC 40 MG/1 ML VIAL IV PUSH SCH ×3 (06:06→23:00)
[2017-07-02] MEDS: RESP: BUDESONIDE 0.5 MG/2 ML NEB NEB SCH ×2 (07:33→20:14)
[2017-07-02] MEDS: RESP: ALBUTEROL 2.5 MG/IPRATROPIUM 0.5 MG NEB (SCH) NEB ×4 (07:33→20:14)
[2017-07-02] MEDS: levETIRAcetam 500 MG/5 ML UDC PO SCH ×2 (09:29→20:04)
[2017-07-02] MEDS: cefTRIAXone INJ 1,000 MG in SODIUM CHLORIDE 0.9% INJ 100 ML IV SCH (09:29)
[2017-07-02] MEDS: SODIUM CHLORIDE 0.9% FLUSH 10 ML FLUSH IV FLUSH SCH ×2 (09:29→20:05)
[2017-07-02] MEDS: MULTIVITAMIN TAB PO SCH (09:30)
[2017-07-02] MEDS: FUROSEMIDE 40 MG TAB PO SCH (09:30)
[2017-07-02] MEDS: SODIUM CHLOR 0.45% 1000 ML INJ 1,000 ML IV SCH (09:31)
[2017-07-02] MEDS: LABETALOL HCL 200 MG TAB PO SCH ×2 (09:31→20:04)
[2017-07-02] MEDS: FAMOTIDINE 20 MG TAB PO SCH ×2 (09:31→20:04)
[2017-07-02] MEDS: DOCUSATE SODIUM 50 MG/SENNA 8.6 MG TAB PO SCH ×2 (09:31→20:04)
[2017-07-02] MEDS: ENOXAPARIN SODIUM 30 MG/0.3 ML SYRINGE SQ SCH (11:47)
[2017-07-02] MEDS: hydrALAZINE HCL 10 MG TAB PO PRN ×2 (14:29→23:43)
--- NOTE | 2017-07-02 16:08 | HHI.PR ---
Subjective Remarks Patient denies any chest pain, denies shortness of breath, denies any pain. Discussed with patient's at bedside. The patient has aphasia due to history of intracerebral hemorrhage. His blood pressure has been elevated today and he has received when necessary hydralazine. The patient's states that he occasionally gets pleurisy that causes chest pain. His reports he has been eating well. Objective Vitals Vital Signs Date Time Temp Pulse Resp B/P (MAP) Pulse Ox O2 Delivery O2 Flow Rate FiO2 07/02/17 12:00 98.2 72 20 172/80 (110) 95 07/02/17 10:30 18 07/02/17 08:00 98.0 78 20 168/100 (122) 95 07/02/17 07:35 97 Nasal Cannula 2.00 07/02/17 04:00 96.7 65 20 175/86 (115) 99 07/02/17 00:00 98.0 67 20 183/96 (125) 98 07/01/17 20:00 96.5 87 19 178/103 (128) 92 07/01/17 19:20 99 Nasal Cannula 2.00 I/O 07/01/17 07/01/17 07/01/17 07/02/17 07/02/17 07/02/17 07:00 15:00 23:00 07:00 15:00 23:00 Intake Total 340 ml 100 ml 1080 ml 300 ml Output Total 700 ml 650 ml 320 ml Balance -360 ml -550 ml 1080 ml -20 ml Intake Oral 340 ml 480 ml 300 ml IV Total 100 ml 600 ml Output Urine Total 700 ml 650 ml 320 ml # Voids 3 2 # Bowel Movements 1 0 Result Diagram: 06/30/1730 06/30/1730 Objective Remarks GENERAL: Very frail-appearing elderly Afro-Lebanese male gentleman lying in bed in no significant distress. SKIN: Warm and dry. HEAD: Normocephalic. EYES: No scleral icterus. No injection or drainage. NECK: Supple, trachea midline. No JVD or lymphadenopathy. CARDIOVASCULAR: Regular rate and rhythm without murmurs, gallops, or rubs. RESPIRATORY: Breath sounds equal but coarse bilaterally with poor air exchange. No accessory muscle use. GASTROINTESTINAL: Abdomen soft, non-tender, nondistended. EXTREMITIES: No cyanosis, or edema. NEUROLOGICAL: Awake, alert. Non-focal. Has expressive aphasia. A/P Assessment and Plan -Sepsis due to UTI - urine culture growing Klebsiella pneumoniae which is pansensitive - continue Rocephin IV. Vital signs are stable will Hep-Lock IV. -Staph epidermidis in one blood culture, likely contaminant - appreciate infectious disease input. -Advanced COPD with exacerbation - appreciate pulmonology following. Continue Solu-Medrol, DuoNeb's, oxygen via nasal cannula. -History of intracerebral hemorrhage in 2016 requiring prolonged ICU stay, tracheostomy and PEG tube, with aphasia, generalized weakness, normally uses wheelchair and is able to transfer and get around the home. -Generalized weakness and deconditioning. Continue physical therapy. -Gastric cancer, was not a candidate for surgery, was treated with radiation and has been followed by Dr. Chao -Chronic respiratory failure on 2 L oxygen at home -Hypertension, poorly controlled - on Lasix 40 mg by mouth daily at home and will be able to 100 mg by mouth twice a day. Will start hydralazine by mouth. -History of seizure status post intracerebral hemorrhage - continue Keppra. -Hyperlipidemia - continue statin. -Status post AAA repair in 2014 -Coronary artery disease with reported history of stent in 2014, he had a Lexiscan nuclear stress test in April 2016 -DVT prophylaxis with Lovenox. Vidya Nolasco MD Jul 02, 2017 16:08
[2017-07-02] MEDS ORDERED: ACETAMINOPHEN/HYDROcodone 325 MG/5 MG TAB PO PRN (17:15)
[2017-07-02] MEDS: clonazePAM 0.5 MG TAB PO SCH (20:04)
[2017-07-02] MEDS: ATORVASTATIN 10 MG TAB PO SCH (20:04)
[2017-07-02] MEDS: ESCITALOPRAM OXALATE 10 MG TAB PO SCH (20:05)
[2017-07-02] MEDS: MORPHINE SULFATE 4 MG/ML INJ IV PUSH PRN (20:06)
[2017-07-02] MEDS ORDERED: NITROGLYCERIN 0.4 MG SL 25 TABS/BTL SL PRN (20:30)
--- NOTE | 2017-07-02 23:14 | RADRPT ---
EXAM DATE/TIME: 07/02/2017 21:38 [facility] COMPARISON: CHEST PA & LAT, June 29, 2017, 22:12. CHEST SINGLE AP, June 28, 2017, 9:49. INDICATIONS : Congestion. MEDICAL HISTORY : Cardiovascular disease. Cerebrovascular disease. Hypertension. COPD. Aneurysm,abdominal. SURGICAL HISTORY : Craniotomy. Abdominal aortic aneurysm repair. Coronary artery stent. Orthopedic surgery. ENCOUNTER: Subsequent ACUITY: 2 days PAIN SCORE: 0/10 LOCATION: Bilateral chest FINDINGS: The heart size is normal. There is mild increased density at the right base. There is questionable fa int density in the left upper lobe. There is minimal blunting of the costophrenic angles. Minimal eff usions may be present. CONCLUSION: 1. Questionable faint density in the left upper lobe. 2. Minimal suspected atelectasis or consolidation at the right base. David Clark MD on July 02, 2017 at 23:11 Board Certified Radiologist. This report was verified electronically.
[2017-07-03] VITALS (12 sets, daily range): BP systolic 169–198; BP diastolic 82–106; PULSE 65–86; RESP 20–22; TEMP 96.5–97.9; O2SAT 95–99
[2017-07-03] MEDS: RESP: ACETYLCYSTEINE 10% 30 ML NEB NEB SCH ×3 (03:00→15:18)
[2017-07-03] MEDS: RESP: ALBUTEROL 2.5 MG/IPRATROPIUM 0.5 MG NEB (PRN) NEB (03:00)
[2017-07-03] MEDS: methylPREDNISolone SOD SUCC 40 MG/1 ML VIAL IV PUSH SCH (06:03)
[2017-07-03] MEDS: RESP: BUDESONIDE 0.5 MG/2 ML NEB NEB SCH ×2 (07:44→21:09)
[2017-07-03] MEDS: RESP: ALBUTEROL 2.5 MG/IPRATROPIUM 0.5 MG NEB (SCH) NEB ×4 (07:44→21:09)
[2017-07-03] MEDS: levETIRAcetam 500 MG/5 ML UDC PO SCH ×2 (08:18→20:26)
[2017-07-03] MEDS: FAMOTIDINE 20 MG TAB PO SCH ×2 (08:18→20:26)
[2017-07-03] MEDS: LABETALOL HCL 200 MG TAB PO SCH ×2 (08:19→20:26)
[2017-07-03] MEDS: MULTIVITAMIN TAB PO SCH (08:19)
[2017-07-03] MEDS: FUROSEMIDE 40 MG TAB PO SCH (08:19)
[2017-07-03] MEDS: DOCUSATE SODIUM 50 MG/SENNA 8.6 MG TAB PO SCH ×2 (08:20→20:26)
[2017-07-03] MEDS: SODIUM CHLORIDE 0.9% FLUSH 10 ML FLUSH IV FLUSH SCH ×2 (08:20→20:26)
[2017-07-03] MEDS: cefTRIAXone INJ 1,000 MG in SODIUM CHLORIDE 0.9% INJ 100 ML IV SCH (09:15)
[2017-07-03] MEDS: hydrALAZINE HCL 25 MG TAB PO SCH ×3 (09:15→17:23)
--- NOTE | 2017-07-03 09:50 | EKG ---
Date Performed: 07/03/2017 Time Performed: 08:32:13 PTAGE: 71 years EKG: Sinus rhythm WITH SHORT [place] INTERVAL NONSPECIFIC ST & T-WAVE ABNORMALITY short pr interval ABNORMAL ECG PREVIOUS TRACING : 07/03/2017 02.55 DOCTOR: Raymundo Lockwood Interpretating Date/Time 07/03/2017 09:49:16
--- NOTE | 2017-07-03 10:00 | HHI.PR ---
Subjective Remarks Patient is in good spirits today. He denies shortness of breath. Denies any further chest pain. Blood pressure still elevated. Objective Vitals Vital Signs Date Time Temp Pulse Resp B/P (MAP) Pulse Ox O2 Delivery O2 Flow Rate FiO2 07/03/17 08:00 97.4 65 22 198/90 (126) 98 07/03/17 07:46 98 Nasal Cannula 2.00 07/03/17 04:20 180/82 (114) 07/03/17 04:00 96.5 86 20 190/105 (133) 96 07/03/17 00:00 97.7 71 20 179/96 (123) 95 07/02/17 21:05 73 07/02/17 20:14 98 Nasal Cannula 2.00 07/02/17 20:00 97.4 85 22 178/98 (124) 97 07/02/17 16:00 97.7 68 20 167/91 (116) 97 07/02/17 12:00 98.2 72 20 172/80 (110) 95 07/02/17 10:30 18 I/O 07/02/17 07/02/17 07/02/17 07/03/17 07/03/17 07/03/17 07:00 15:00 23:00 07:00 15:00 23:00 Intake Total 1080 ml 400 ml 1045 ml 240 ml Output Total 320 ml 800 ml Balance 1080 ml 80 ml 245 ml 240 ml Intake Oral 480 ml 300 ml 520 ml 240 ml IV Total 600 ml 100 ml 525 ml Output Urine Total 320 ml 800 ml # Voids 2 # Bowel Movements 0 0 Result Diagram: 06/30/1762906/30/1730 Objective Remarks GENERAL: Very frail-appearing elderly Afro-Azerbaijani male gentleman lying in bed in no significant distress. SKIN: Warm and dry. HEAD: Normocephalic. EYES: No scleral icterus. No injection or drainage. NECK: Supple, trachea midline. No JVD or lymphadenopathy. CARDIOVASCULAR: Regular rate and rhythm without murmurs, gallops, or rubs. RESPIRATORY: Breath sounds equal but coarse bilaterally with poor air exchange. Faint wheezing. No accessory muscle use. GASTROINTESTINAL: Abdomen soft, non-tender, nondistended. EXTREMITIES: No cyanosis, or edema. NEUROLOGICAL: Awake, alert. Non-focal. Has expressive aphasia. A/P Assessment and Plan -Sepsis due to UTI - urine culture growing Klebsiella pneumoniae which is pansensitive - continue Rocephin IV. Vital signs are stable. -Staph epidermidis in one blood culture, likely contaminant - appreciate infectious disease input. -Advanced COPD with exacerbation - appreciate pulmonology following. Continue DuoNeb's, oxygen via nasal cannula. Status post course of Solu-Medrol. -History of intracerebral hemorrhage in 2016 requiring prolonged ICU stay, tracheostomy and PEG tube, with aphasia, generalized weakness, normally uses wheelchair and is able to transfer and get around the home. -Generalized weakness and deconditioning. Continue physical therapy. -Gastric cancer, was not a candidate for surgery, was treated with radiation and has been followed by Dr. Chao -Chronic respiratory failure on 2 L oxygen at home -Hypertension, poorly controlled - on Lasix 40 mg by mouth daily at home and will be able to 100 mg by mouth twice a day. Will start hydralazine by mouth 25 mg by mouth 3 times a day. -History of seizure status post intracerebral hemorrhage - continue Keppra. -Hyperlipidemia - continue statin. -Status post AAA repair in 2014 -Coronary artery disease with reported history of stent in 2014, he had a Lexiscan nuclear stress test in April 2016 -DVT prophylaxis with Lovenox. Discharge Planning He has a home health aide that comes in daily in the morning, he lives with his , his daughter sleeps with him at night. and patient desiring of them to be discharged home with home health care and declined [facility] facility. Possible discharge home tomorrow depending on how he does with physical therapy and if blood pressure improved. Vidya Nolasco MD Jul 03, 2017 10:00
--- NOTE | 2017-07-03 10:01 | EKG ---
Date Performed: 07/03/2017 Time Performed: 02:55:36 PTAGE: 71 years EKG: Sinus rhythm WITH SHORT [place] INTERVAL WITH OCCASIONAL ECTOPIC PREMATURE COMPLEXES POSSIBLE LEFT ATRIAL ENLARGEMENT NONSPECIFIC T-WAVE ABNORMALITY ABNORMAL ECG PREVIOUS TRACING : 07/02/2017 20.12 DOCTOR: Raymundo Lockwood Interpretating Date/Time 07/03/2017 10:01:20
--- NOTE | 2017-07-03 10:21 | EKG ---
Date Performed: 07/02/2017 Time Performed: 20:12:19 PTAGE: 71 years EKG: Sinus rhythm WITH SHORT [place] INTERVAL NONSPECIFIC ST & T-WAVE ABNORMALITY ABNORMAL ECG WARNING: DATA QUALITY MAY AF FECT INTERPRETATION PREVIOUS TRACING : 06/30/2017 16.05 DOCTOR: Raymundo Lockwood Interpretating Date/Time 07/03/2017 10:19:49
[2017-07-03] MEDS: ENOXAPARIN SODIUM 30 MG/0.3 ML SYRINGE SQ SCH (12:15)
[2017-07-03] MEDS: ATORVASTATIN 10 MG TAB PO SCH (20:25)
[2017-07-03] MEDS: ESCITALOPRAM OXALATE 10 MG TAB PO SCH (20:25)
[2017-07-03] MEDS: clonazePAM 0.5 MG TAB PO SCH (20:26)
[2017-07-03] MEDS: hydrALAZINE HCL 10 MG TAB PO PRN (21:56)
[2017-07-04] VITALS: BP 150/76; PULSE 71; RESP 20; TEMP 98.6; O2SAT 96
[2017-07-04] MEDS: MORPHINE SULFATE 4 MG/ML INJ IV PUSH PRN (03:34)
[2017-07-04] MEDS: RESP: ALBUTEROL 2.5 MG/IPRATROPIUM 0.5 MG NEB (PRN) NEB (03:59)
[2017-07-04 04:00] VITALS: BP 150/88; PULSE 67; RESP 20; TEMP 97; O2SAT 96
[2017-07-04] MEDS: RESP: ALBUTEROL 2.5 MG/IPRATROPIUM 0.5 MG NEB (SCH) NEB ×3 (07:33→16:20)
[2017-07-04] MEDS: RESP: BUDESONIDE 0.5 MG/2 ML NEB NEB SCH (07:33)
[2017-07-04 07:35] VITALS: O2SAT 99
[2017-07-04 08:00] VITALS: BP 168/89; PULSE 69; RESP 15; TEMP 97.6; O2SAT 98
[2017-07-04 08:50] VITALS: PULSE 69
[2017-07-04] MEDS: levETIRAcetam 500 MG/5 ML UDC PO SCH (08:52)
[2017-07-04] MEDS: SODIUM CHLORIDE 0.9% FLUSH 10 ML FLUSH IV FLUSH SCH (08:52)
[2017-07-04] MEDS: MULTIVITAMIN TAB PO SCH (08:53)
[2017-07-04] MEDS: predniSONE 5 MG TAB PO SCH (08:53)
[2017-07-04] MEDS: FAMOTIDINE 20 MG TAB PO SCH (08:53)
[2017-07-04] MEDS: LABETALOL HCL 200 MG TAB PO SCH (08:53)
[2017-07-04] MEDS: hydrALAZINE HCL 25 MG TAB PO SCH ×2 (08:53→12:49)
[2017-07-04] MEDS: DOCUSATE SODIUM 50 MG/SENNA 8.6 MG TAB PO SCH (08:54)
[2017-07-04] MEDS: FUROSEMIDE 40 MG TAB PO SCH (08:54)
[2017-07-04] MEDS: cefTRIAXone INJ 1,000 MG in SODIUM CHLORIDE 0.9% INJ 100 ML IV SCH (08:54)
[2017-07-04] MEDS ORDERED: HYDR-3799 PO (12:24)
[2017-07-04] MEDS ORDERED: LEVA500T20 PO (12:24)
--- NOTE | 2017-07-04 12:25 | HHI.DS ---
Discharge Summary Admission Date Jun 28, 2017 at 11:14 Discharge Date: Jul 04, 2017 Admitting Diagnosis UTI, sepsis, dyspnea (1) COPD (chronic obstructive pulmonary disease) ICD Code: J44.9 - Chronic obstructive pulmonary disease Status: Chronic (2) Chronic respiratory failure with hypoxia ICD Code: J96.11 - Chronic respiratory failure with hypoxia Status: Acute (3) UTI (urinary tract infection) ICD Code: N39.0 - Urinary tract infection, site not specified Status: Acute (4) Sepsis ICD Code: A41.9 - Sepsis, unspecified organism Status: Acute (5) Shortness of breath ICD Code: R06.02 - Shortness of breath Status: Acute Procedures None Brief History - From Admission This is a pleasant 71 year-old -Beninese male with past medical history of COPD on chronic home oxygen, previous intracerebral hemorrhage last year was on ventilator and had trach at that time. He presented to the ER with progressive shortness of breath and weakness. CBC/BMP: 06/30/17 0630 06/30/17 0630 Significant Findings Laboratory Tests Test 07/02/17 20:38 07/03/17 03:15 07/03/17 08:30 Imaging Last Impressions Chest X-Ray 07/02/17 0000 Signed Impressions: Service Date/Time: Sunday, July 02, 2017 21:38 - CONCLUSION: 1. Questionable faint density in the left upper lobe. 2. Minimal suspected atelectasis or consolidation at the right base. David Clark MD Renal Ultrasound 06/30/17 0000 Signed Impressions: Service Date/Time: Friday, June 30, 2017 16:31 - CONCLUSION: No evidence of mass or hydronephrosis. Rory Olivares MD PE at Discharge GENERAL: Very frail-appearing elderly Afro-Beninese male gentleman lying in bed in no significant distress. SKIN: Warm and dry. HEAD: Normocephalic. EYES: No scleral icterus. No injection or drainage. NECK: Supple, trachea midline. No JVD or lymphadenopathy. CARDIOVASCULAR: Regular rate and rhythm without murmurs, gallops, or rubs. RESPIRATORY: Breath sounds equal but coarse bilaterally with poor air exchange. Faint wheezing. No accessory muscle use. GASTROINTESTINAL: Abdomen soft, non-tender, nondistended. EXTREMITIES: No cyanosis, or edema. NEUROLOGICAL: Awake, alert. Non-focal. Has expressive aphasia. Hospital Course The patient was admitted and treated for COPD exacerbation and UTI. Pulmonology and infectious disease were consulted. Urine culture grew Klebsiella pneumoniae. He did have one positive blood culture was staph epidermidis, likely a contaminant. Physical therapy was consulted. The patient made gradual improvement. He will be discharged home today with home health care and daily aide who comes to the house. Patient declines to consider residential facility. Pt Condition on Discharge: Stable Discharge Disposition: Disch w/ Home Health Serv Discharge Time: > 30 minutes Discharge Instructions DIET: Follow Instructions for: Heart Healthy Diet Activities you can perform: Regular-No Restrictions Follow up Referrals: PCP Follow-up - 3-5 Days New Medications: Hydralazine HCl (Hydralazine HCl) 25 Mg Tablet 50 MG PO TID for Blood Pressure Management, #90 TAB 0 Refills Levofloxacin (Levaquin) 500 Mg Tablet 500 MG PO DAILY for Infection, #7 TAB 0 Refills Continued Medications: Albuterol Neb (Albuterol Neb) 2.5 Mg/3 Ml Neb 2.5 MG NEB ONCE PRN for Q6H, #1 NEBULE 0 Refills Atorvastatin (Atorvastatin) 10 Mg Tab 10 MG PO HS for Cholesterol Management, #30 TAB 0 Refills Clonazepam (Clonazepam) 0.5 Mg Tab 0.5 MG PO HS, #60 TAB 0 Refills Docusate Sodium (Colace) 100 Mg Capsule 1 CAP PO BID Escitalopram (Lexapro) 20 Mg Tab 30 MG PO HS, #30 TAB 0 Refills Hydrocodone-Acetaminophen (Lortab) 5-325 Mg Tab 1 TAB PO BID PRN for PAIN, TAB 0 Refills Ipratropium-Albuterol Inh (Combivent Respimat Inh) 20-100 Longterm/Act Aero 1 PUFF INH QID for Asthma Management, #1 INHALER 0 Refills Labetalol (Labetalol) 200 Mg Tab 200 MG PO BID for Blood Pressure Management, TAB 0 Refills Levetiracetam Liq (Keppra Liq) 500 Mg/5 Ml Soln 500 MG PO BID for Control Seizures, #300 ML 0 Refills Prednisone (Prednisone) 10 Mg Tab 15 MG PO DAILY, TAB 0 Refills Ranitidine (Zantac 150 Maximum Strength) 150 Mg Tab 150 MG PO BID, TAB Sennosides (Sennosides) 8.6 Mg Tab 8.6 MG PO BID for Constipation, TAB 0 Refills Discontinued Medications: Hydrochlorothiazide (Hydrochlorothiazide) 25 Mg Tab 25 MG PO DAILY, #30 TAB 0 Refills Potassium Chloride Liq (Potassium Chloride Liq) 40 Meq/15 Ml Soln 40 MEQ PO BID for Electrolyte Replacement, ML 0 Refills Vidya Nolasco MD Jul 04, 2017 12:25
--- NOTE | 2017-07-04 12:26 | HHI.FF ---
Face to Face Verification Diagnosis: (1) Chronic respiratory failure with hypoxia (2) COPD (chronic obstructive pulmonary disease) (3) Impaired mobility and activities of daily living (4) UTI (urinary tract infection) Physical Therapy Order: Evaluate and Treat Home Health Nursing Order: Oxygen administration education Nursing assessment with vital signs I have seen patient Yong RodriguezJr on 07/04/17. My clinical findings support the need for the requested home health care services because: Ltd mobility - disease progression Limited ability to care for self I certify that my clinical findings support that this patient is homebound because: Hx COPD- exertion dyspnea/weakness Unsteady gait/balance Unsafe to leave home unassisted Need for psychosocial assistance Vidya Nolasco MD Jul 04, 2017 12:26
[2017-07-04] MEDS: ENOXAPARIN SODIUM 30 MG/0.3 ML SYRINGE SQ SCH (12:49)
[2017-07-04 12:52] VITALS: BP 138/95; PULSE 78; RESP 16; TEMP 97.2; O2SAT 92
== END 2017-07-04 17:02 | disposition home health service (06) | DRG 190 ==
LOC: PHED 09:26 → PHEDA 11:14 → PH3A 12:02
PROVIDERS: ADMIT Family Medicine; ATTEND Family Medicine
DX: J44.1 Chronic obstructive pulmonary disease with (acute) exacerbation (principal); E43 Unspecified severe protein-calorie malnutrition; N39.0 Urinary tract infection, site not specified; R56.9 Unspecified convulsions; Z99.81 Dependence on supplemental oxygen; J96.11 Chronic respiratory failure with hypoxia; J98.11 Atelectasis; B96.1 Klebsiella pneumoniae [K. pneumoniae] as the cause of diseases classified elsewhere; D64.9 Anemia, unspecified; E86.9 Volume depletion, unspecified; E78.5 Hyperlipidemia, unspecified; I12.9 Hypertensive chronic kidney disease with stage 1 through stage 4 chronic kidney disease, or unspecified chronic kidney disease; G47.30 Sleep apnea, unspecified; N18.9 Chronic kidney disease, unspecified; F32.9 Major depressive disorder, single episode, unspecified; D63.8 Anemia in other chronic diseases classified elsewhere; Z68.24 Body mass index [BMI] 24.0-24.9, adult; Z85.028 Personal history of other malignant neoplasm of stomach; Z86.79 Personal history of other diseases of the circulatory system; Z92.3 Personal history of irradiation; Z95.5 Presence of coronary angioplasty implant and graft; Z86.010 Personal history of colon polyps; Z87.891 Personal history of nicotine dependence; R10.12 Left upper quadrant pain; R41.0 Disorientation, unspecified; R94.31 Abnormal electrocardiogram [ECG] [EKG]
CPT/HCPCS: 71010; 71020; 74177; 76775; 80048; 80053; 81001; 82550; 83605; 83690; 83735; 83880; 84134; 84443; 84484; 85025; 85610; 85730; 86403; 87040; 87077; 87086; 87186; 87205; 87449; 87804; 93005; 94640; 94664; 96361; 96365; 96374; J0696; J1650; J2270; J2920; J2930; J7030; J7512; J7608; J7626; P9612; Q9967

== ENCOUNTER 2017-07-05 21:37 | Emergency (ER) | payer MEDICARE, BC ==
[~2017-07-05 21:37] MED LIST changes: +HYDR-3799 PO; -HYDR25TA5 PO; +LEVA500T20 PO; -POTA10LI10 PO; -PULM180I INH; -ZITHTAB PO
[2017-07-05 22:03] VITALS: BP 178/89; PULSE 77; RESP 26; TEMP 98.4; O2SAT 80
--- NOTE | 2017-07-05 22:16 | PD ---
HPI Chief Complaint: Chest Pain Time Seen by Provider: 22:00 Travel History International Travel<30 days: No Contact w/Intl Traveler<30days: No Traveled to known affect area: No History of Present Illness HPI The patient is a 71-year-old male with a history of COPD with hypoxia who was just discharged from the hospital on the fifth of this month. He went home and was having chest pain and shortness of breath. He is brought in again today because of chest pain and shortness of breath. His blood pressure medications were changed to hydralazine and his antibiotic is Levaquin. The patient also had a urine infection which grew out Klebsiella pneumonia. He only had one positive blood culture which was likely a contaminant, staph epidermidis. Apparently, the patient declined to consider a [facility] facility. He is a full code. He does have a history of COPD which is oxygen dependent on 3 L nasal cannula. He has had the daughter states she was disoriented. He does have a history of impaired cognition in the past. He also has expressive aphasia, weakness in the right upper extremity and altered mental status. Previous intracerebral hemorrhage last year and was on the ventilator and had a tracheostomy at that time. The daughter, who brought him in again today states he was too weak to go to the bathroom and he had a go to the bathroom about every hour or 2. He had both chest pain and shortness of breath at home. PFSH Past Medical History Asthma: No Anxiety: No Depression: Yes Heart Rhythm Problems: No Cancer: Yes (STOMACH-RADIATION TXMENT, r eyelid cancer [id number]) Cardiovascular Problems: Yes High Cholesterol: Yes Chemotherapy: Yes Chest Pain: No Congestive Heart Failure: No COPD: Yes Cerebrovascular Accident: Yes (Hemorrhagic stroke 08/2015, r sided weakness) Diabetes: No Diminished Hearing: No Endocrine: No Gastrointestinal Disorders: Yes (HX OF STOMACH CANCER ) GERD: No Genitourinary: No Headaches: No Hiatal Hernia: No Hypertension: Yes Immune Disorder: No Implanted Vascular Access Dvce: No Kidney Stones: No Musculoskeletal: No Neurologic: Yes Psychiatric: Yes Reproductive: No Respiratory: Yes Migraines: No Radiation Therapy: Yes Renal Failure: No Seizures: Yes Sleep Apnea: Yes Thyroid Disease: No Ulcer: No Past Surgical History Abdominal Surgery: Yes (ABDOMINAL ANEURYSM REPAIR) Cardiac Surgery: Yes (PT HAS AORTIC ANEURYSM 4-5CM, surgery done unable to recall type) Ear Surgery: No Endocrine Surgery: No Eye Surgery: No Genitourinary Surgery: No Gynecologic Surgery: No Joint Replacement: Yes (RT SHOULDER(ROTATOR CUFF) SURGERY) Neurologic Surgery: Yes (Craniotomy ) Oral Surgery: Yes (Teeth removal) Thoracic Surgery: No Other Surgery: Yes (DEVIATED SEPTUM REPAIR) Social History Alcohol Use: No Tobacco Use: No (40 YR HX 1PPD QUIT 08/07) Substance Use: No Allergies-Medications (Allergen,Severity, Reaction): Coded Allergies: aspirin (Unverified Allergy, Severe, VOMITING, 07/05/17) Reported Meds & Prescriptions Reported Meds & Active Scripts Active Levaquin (Levofloxacin) 500 Mg Tablet 500 Mg PO DAILY Hydralazine HCl 25 Mg Tablet 50 Mg PO TID Reported Colace (Docusate Sodium) 100 Mg Capsule 1 Cap PO BID Lortab (Hydrocodone-Acetaminophen) 5-325 Mg Tab 1 Tab PO BID PRN Albuterol Neb (Albuterol Sulfate) 2.5 Mg/3 Ml Neb 2.5 Mg NEB ONCE PRN Sennosides 8.6 Mg Tab 8.6 Mg PO BID Zantac 150 Maximum Strength (Ranitidine HCl) 150 Mg Tab 150 Mg PO BID Prednisone 10 Mg Tab 15 Mg PO DAILY Keppra Liq (Levetiracetam) 500 Mg/5 Ml Soln 500 Mg PO BID Labetalol (Labetalol HCl) 200 Mg Tab 200 Mg PO BID Lexapro (Escitalopram Oxalate) 20 Mg Tab 30 Mg PO HS Clonazepam 0.5 Mg Tab 0.5 Mg PO HS Atorvastatin (Atorvastatin Calcium) 10 Mg Tab 10 Mg PO HS Combivent Respimat Inh (Ipratropium-Albuterol Inh) 20-100 Nursing Home/Act Aero 1 Puff INH QID Review of Systems Except as stated in HPI: all other systems reviewed are Neg Physical Exam Narrative GENERAL: The patient is lethargic and disoriented with regard to year and it is necessary to ask a question several times before he will answer. Apparently, his oximetry was in the 80 percent in the emergency department on 4 L nasal cannula. Apparently a small amount of exercise leads 2 hypoxemia. SKIN: Focused skin assessment warm/dry. HEAD: Atraumatic. Normocephalic. EYES: Pupils equal and round. No scleral icterus. No injection or drainage. ENT: No nasal bleeding or discharge. Mucous membranes pink and moist. NECK: Trachea midline. No JVD. CARDIOVASCULAR: Regular rate and rhythm. No murmur appreciated. RESPIRATORY: No accessory muscle use. Clear to auscultation. Breath sounds equal bilaterally. GASTROINTESTINAL: Abdomen soft, non-tender, nondistended. Hepatic and splenic margins not palpable. MUSCULOSKELETAL: No obvious deformities. No clubbing. No cyanosis. No edema. NEUROLOGICAL: Awake and alert. No obvious cranial nerve deficits. Motor grossly within normal limits. Normal speech. PSYCHIATRIC: Appropriate mood and affect; insight and judgment normal. Data Data Last Documented VS Vital Signs Date Time Temp Pulse Resp B/P (MAP) Pulse Ox O2 Delivery O2 Flow Rate FiO2 07/05/17 22:58 77 18 145/72 (96) 96 Nasal Cannula 2.00 07/05/17 22:03 98.4 Orders Orders Complete Blood Count With Diff (07/05/17 22:16) Comprehensive Metabolic Panel (07/05/17 22:16) B-Type Natriuretic Peptide (07/05/17 22:16) Troponin I (07/05/17 22:16) Arterial Blood Gas (Abg) (07/05/17 22:16) Iv Access Insert/Monitor (07/05/17 22:16) Electrocardiogram (07/05/17 22:16) Ecg Monitoring (07/05/17 22:16) Oximetry (07/05/17 22:16) Oxygen Administration (07/05/17 22:16) Chest, Single Ap (07/05/17 22:16) Sodium Chloride 0.9% Flush (Ns Flush) (07/05/17 22:30) Albuterol-Ipratropium Neb (Duoneb Neb) (07/05/17 22:30) Urinalysis - C+S If Indicated (07/05/17 23:02) Cath For Specimen (07/05/17 23:03) Labs Laboratory Tests Test 07/05/17 20:00 07/05/17 22:28 07/05/17 23:15 White Blood Count 9.0 TH/MM3 Red Blood Count 4.01 MIL/MM3 Hemoglobin 11.3 GM/DL Hematocrit 36.0 % Mean Corpuscular Volume 89.8 FL Mean Corpuscular Hemoglobin 28.1 PG Mean Corpuscular Hemoglobin Concent 31.3 % Red Cell Distribution Width 13.6 % Platelet Count 177 TH/MM3 Mean Platelet Volume 8.6 FL Neutrophils (%) (Auto) 79.2 % Lymphocytes (%) (Auto) 9.8 % Monocytes (%) (Auto) 6.3 % Eosinophils (%) (Auto) 0.2 % Basophils (%) (Auto) 4.5 % Neutrophils # (Auto) 7.1 TH/MM3 Lymphocytes # (Auto) 0.9 TH/MM3 Monocytes # (Auto) 0.6 TH/MM3 Eosinophils # (Auto) 0.0 TH/MM3 Basophils # (Auto) 0.4 TH/MM3 CBC Comment DIFF FINAL Differential Comment Blood Urea Nitrogen 24 MG/DL Creatinine 1.30 MG/DL Random Glucose 312 MG/DL Total Protein 6.3 GM/DL Albumin 2.9 GM/DL Calcium Level 9.1 MG/DL Alkaline Phosphatase 93 U/L Aspartate Amino Transf (AST/SGOT) 32 U/L Alanine Aminotransferase (ALT/SGPT) 75 U/L Total Bilirubin 0.4 MG/DL Sodium Level 133 MEQ/L Potassium Level 3.8 MEQ/L Chloride Level 89 MEQ/L Carbon Dioxide Level 37.8 MEQ/L Anion Gap 6 MEQ/L Estimat Glomerular Filtration Rate 66 ML/MIN Troponin I 0.03 NG/ML B-Type Natriuretic Peptide 300 PG/ML Blood Gas Puncture Site RT RADIAL Blood Gas Patient Temperature 98.6 Blood Gas HCO3 40 mmol/L Blood Gas Base Excess 14.5 mmol/L Blood Gas Oxygen Saturation 95 % Arterial Blood pH 7.40 Arterial Blood Partial Pressure CO2 65 mmHG Arterial Blood Partial Pressure O2 108 mmHG Arterial Blood Oxygen Content 15.0 Vol % Arterial Blood Carboxyhemoglobin 1.8 % Arterial Blood Methemoglobin 0.9 % Blood Gas Hemoglobin 11.1 G/DL Oxygen Delivery Device NASAL CANNULA Blood Gas Liter Flow 3 L/M Urine Color YELLOW Urine Turbidity CLEAR Urine pH 6.0 Urine Specific [place] 1.026 Urine Protein TRACE mg/dL Urine Glucose (UA) 500 mg/dL Urine Ketones NEG mg/dL Urine Occult Blood SMALL Urine Nitrite NEG Urine Bilirubin NEG Urine Leukocyte Esterase NEG Urine RBC 15-19 /hpf Urine WBC 0-2 /hpf Urine Squamous Epithelial Cells 0-5 /hpf Urine Bacteria NONE /hpf Microscopic Urinalysis Comment CATH-CULT NOT IND MDM Medical Decision Making Medical Screen Exam Complete: Yes Emergency Medical Condition: Yes Medical Record Reviewed: Yes Interpretation(s) The urine shows specific gravity 1.026, glucose of 500, small occult blood and 15-19 red cells but is otherwise normal and culture is not indicated. The complete metabolic profile shows a sodium of 133, bicarbonate of 37.8, BUN 24, glucose 312 with a GFR of 66 and total protein of 6.3 and albumin 2.9 but is otherwise normal. The BNP is 300. The blood gases show pH 7.4, CO2 65, PO2 108. Differential Diagnosis COPD with acute exacerbation, exercise-induced hypoxemia, confusion, urinary tract infection, electrolyte disorder Narrative Course Apparently, the patient retains CO2. He was supposed to be on 2 L nasal cannula at home but instead he was on 3 L. The 3 L nasal cannula apparently went to CO2 retention and lethargy. He was dropped to 2 L nasal cannula and is doing fine here in the emergency department. His oximetry is 96% here and he is much more alert. He does not have a urine infection. The small amount of blood in the urine is likely from the catheterization. He may have an element of congestive heart failure with the elevated BNP and his glucose is 312. The troponin I is normal and there is no evidence of acute cardiac damage. Additional Instructions: As we discussed, keep his oxygen on 2 L and do not allow him to exerting himself too much. Follow-up with Dr. Mckinney on Saturday. Disposition: DISCHARGE HOME Condition: Stable Darnell Mora MD Jul 05, 2017 22:16
[2017-07-05 22:22] VITALS: O2SAT 99
[2017-07-05] MEDS: RESP: ALBUTEROL 2.5 MG/IPRATROPIUM 0.5 MG NEB (SCH) INH (22:25)
[2017-07-05 22:26] LABS: AUTOMATED NEUTROPHIL # 7.1 TH/MM3 (1.8-7.7); BASOPHIL # 0.4 TH/MM3 (0-0.2); BASOPHIL % 4.5 % (0.0-2.0); EOSINOPHIL % 0.2 % (0.0-4.0); HEMO FLAGS DIFF FINAL; LYMPH % 9.8 % (9.0-44.0); LYMPHOCYTE # 0.9 TH/MM3 (1.0-4.8); MEAN CELL VOLUME 89.8 FL (80.0-100.0); MEAN CORPUSCULAR HEMOGLOBIN 28.1 PG (27.0-34.0); MEAN CORPUSCULAR HGB CONC 31.3 % (32.0-36.0); MONO % 6.3 % (0.0-8.0); NEUT % 79.2 % (16.0-70.0); PLATELET COUNT 177 TH/MM3 (150-450); RED BLOOD COUNT 4.01 MIL/MM3 (4.50-5.90); RED CELL DISTRIBUTION WIDTH 13.6 % (11.6-17.2)
[2017-07-05] MEDS ORDERED: SODIUM CHLORIDE 0.9% FLUSH 10 ML FLUSH IVF PRN (22:30)
[2017-07-05 22:35] VITALS: O2SAT 98
[2017-07-05 22:35] LABS: CHLORIDE 89 MEQ/L (98-107); POTASSIUM 3.8 MEQ/L (3.5-5.1); SODIUM (NA) 133 MEQ/L (136-145)
[2017-07-05 22:38] LABS: ANION GAP 6 MEQ/L (5-15); BICARBONATE 37.8 MEQ/L (21.0-32.0); BLOOD UREA NITROGEN 24 MG/DL (7-18)
[2017-07-05 22:41] LABS: ALT (GPT) 75 U/L (12-78); AST (GOT) 32 U/L (15-37); GLOMERULAR FILTRATION RATE 66 ML/MIN (>89)
[2017-07-05 22:41] LABS: BLOOD GAS BASE EXCESS 14.5 mmol/L (-2-2); BLOOD GAS CARBOXYHEMOGLOBIN 1.8 % (0-4); BLOOD GAS HCO3 40 mmol/L (22-26); BLOOD GAS METHEMOGLOBIN 0.9 % (0-2); BLOOD GAS O2 HGB SATURATION 95 % (90-100); BLOOD GAS PCO2 65 mmHG (38-42); BLOOD GAS PO2 108 mmHG (61-120); BLOOD GAS TOTAL HGB 11.1 G/DL (12.0-16.0); CRITICAL VALUE YES; DRAW SITE RT RADIAL; LITER FLOW 3 L/M; NUMBER OF ARTERIAL PUNCTURES 1; OXYGEN DEVICE NASAL CANNULA; TEMP CORR TO 98.6; ULNAR PULSE Y
[2017-07-05 22:42] LABS: TOTAL BILIRUBIN ADULT 0.4 MG/DL (0.2-1.0)
[2017-07-05 22:42] LABS: STAT YES
[2017-07-05 22:44] LABS: ALKALINE PHOSPHATASE 93 U/L (45-117)
--- NOTE | 2017-07-05 22:53 | RADRPT ---
EXAM DATE/TIME: 07/05/2017 22:36 [place] COMPARISON: CHEST SINGLE AP, July 02, 2017, 21:38. INDICATIONS : Shortness of breath. MEDICAL HISTORY : Aneurysm, abdominal. Cardiovascular disease. Cerebrovascular disease. Hypertension. COPD. SURGICAL HISTORY : Craniotomy. Abdominal aortic aneurysm repair. Coronary artery stent. ENCOUNTER: Initial ACUITY: 1 day PAIN SCORE: 0/10 LOCATION: Bilateral chest FINDINGS: A single portable frontal view of the chest shows emphysematous changes. Blunting of the left costoph renic angle. Lungs are hyperinflated. No infiltrate. Heart is normal in size. Aorta is calcified. CONCLUSION: Blunting of the left costophrenic angle either relating to a tiny effusion or pleural scarring. Emphy sematous changes. Rory Rdz Jr., MD on July 05, 2017 at 22:50 Board Certified Radiologist. This report was verified electronically.
[2017-07-05 22:58] VITALS: BP 145/72; PULSE 77; RESP 18; O2SAT 96
[2017-07-05 23:20] LABS: BLOOD, URINE SMALL (NEG); GLUCOSE,URINE 500 mg/dL (NEG); KETONE, URINE NEG (NEG); NITRITE,URINE NEG (NEG)
[2017-07-05 23:35] LABS: URINE COLOR YELLOW (YELLW/STRAW)
[2017-07-05 23:36] LABS: COMMENT (UR) CATH-CULT NOT IND; CULTURE IF INDICATED CATH CULTURE NOT IND; RBC, URINE 15-19 /hpf (0-3); SQUAMOUS EPITHELIAL CELL URINE 0-5 /hpf (0-5); WBC, URINE 0-2 /hpf (0-5)
[2017-07-05 23:55] VITALS: BP 116/72
--- NOTE | 2017-07-06 05:03 | EKG ---
Date Performed: 07/05/2017 Time Performed: 21:44:24 PTAGE: 71 years EKG: Sinus rhythm WITH SHORT [place] INTERVAL POSSIBLE LEFT ATRIAL ENLARGEMENT NONSPECIFIC ST & T-WAVE ABNORMALITY BORDERLI NE ECG INTERPRETATION BASED ON A DEFAULT AGE OF 38 YEARS NO PREVIOUS TRACING DOCTOR: Thomas Grayson Interpretating Date/Time 07/06/2017 05:02:22
== END 2017-07-06 00:09 | disposition home or self-care (01) ==
LOC: PHED 21:37
DX: J44.1 Chronic obstructive pulmonary disease with (acute) exacerbation (principal); E87.2 Acidosis; I10 Essential (primary) hypertension; R41.82 Altered mental status, unspecified; Z86.73 Personal history of transient ischemic attack (TIA), and cerebral infarction without residual deficits; E78.00 Pure hypercholesterolemia, unspecified; G47.30 Sleep apnea, unspecified; Z99.81 Dependence on supplemental oxygen
CPT/HCPCS: 36600; 71010; 80053; 81001; 82805; 83880; 84484; 85025; 93005; 94640; 94664; 99285; P9612